=== PATIENT | male | born 1940 | race Caucasian/White ===

== ENCOUNTER 2019-08-26 10:19 | Observation (INO) | payer OTHER ==
--- OUTSIDE RECORDS SUMMARY | 2019-08-26 10:21 | XMS REPORT ---
:1940 [facility] [address] [place] [address] Care Team Providers Name Role Phone Unavailable Unavailable Unavailable Payers Payer Name Policy Type Policy Number Effective Date Expiration Date Problems This patient has no known problems. Allergies, Adverse Reactions, Alerts Allergy Name Allergy Status Severity Reaction(s) Onset Inactive Treating Comments Type Date Date Clinician No Known Drug DA Active U Allergies 05-31 00:00: 00 tamsulosin DA Active SV 3-04 00:00: 00 hydrocodone DA Active U 3- 00:00: 00 ciprofloxacin DA Active NH 10-16 00:00: 00 Medications This patient has no known medications. 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 Fluoroscopically guided needle localization of the right L4-5 intraspinal synovial cyst with aspiration and decompression. 2. Fluoroscopically guided needle localization of the bilateral L4-5 and bilateral L5-S1 facets with arthrograms and diagnostic injection of local anesthetic and steroid. FINDINGS: Grade 2 spondylolisthesis is present at L4-5. The right L4-5 facet shows a large synovial cysts extending almost to the anterior epidural space off the superior capsule. Aspiration was positive for 0.5 mL of clear serous straw-colored fluid. All joints showed marked capsular degenerative changes. Provocation was negative. Anesthetic response was positive with the patient noting complete relief of his low back pain. Preinjection VAS 5-6/10. Postinjection VAS 0/10. Steroid response pending follow-up. ESTIMATED BLOOD LOSS: Minimal ANESTHESIA: TIVA COMPLICATIONS: None DETAILS OF PROCEDURE: After obtaining stable vital signs, informed consent and IV access patient was taken to the fluoroscopy suite where the patient was placed in a prone position with All extremities padded and appropriate monitors placed. The patient was sterilely prepped prepped and draped over the lumbosacral spine. Using fluoroscopic visualization, the insertion sites were marked for a paravertebral approach to each joint. Using standard technique, a 26 -gauge needle was inserted into each joint capsule without paresthesias. At the right L4-5 facet, aspiration was positive for clear serous fluid. Isovue-300 contrast 0.2 mL was injected to produce each arthrogram. There were no signs of intravascular or intrathecal uptake. A large synovial cyst was identified off the superomedial aspect of the right L4-5 facet and the insertion site was marked for a paravertebral approach sublaminar. Using standard technique a 25-gauge needle was advanced into the cyst and aspiration was positive for 0.5 mL of clear serous straw-colored fluid. Several passes into the cyst were made. Retrograde flow of contrast was seen into the cyst needle. The needle was removed. Bupivicaine 0.75% 0.5 mL with Lidocaine 4% 0.25 ml and triamcinolone 12 mg was then injected incrementally into each joint. There were no signs of intravascular or intrathecal uptake. The patient's vital signs remained stable. All needles were removed and the patient was taken to the PACU in good condition. [facility] NAME: COLUMBA ESPINO [address] [facility] PHYS: Yovany Coronado MD [place], [place] [address] : 1940 AGE: 78 SEX: M LOC: TORRES PHONE #: [phone] EXAM DATE: 05/31/2019 STATUS: [place] [facility] FAX #: [phone] RAD #: D/C DT PAGE 1 Signed Report (CONTINUED) Patient Name: COLUMBA ESPINO Unit No: [id number] EXAMS: CPT CODE: [id number] XR FLUORO FOR SPINE INJ 62603 <Continued> at 1652 Reported and signed by: Yovany Gao M.D. CC: Yovany Gao MD Technologist: DONNA WONG RT(R) Transcribed D/ (296) [facility]: COLUMBA ESPINO [address] PHYS: Yovany Coronado MD [place] [address] : 1940 AGE: 78 SEX: M LOC: TORRES PHONE #: [phone] EXAM DATE: 05/31/2019 STATUS: REG [facility] FAX #: [phone] RAD #: D/C DT PAGE 2 Signed Report Patient Name: COLUMBA ESPINO Unit No: [id number] EXAMS: CPT CODE: [id number] XR FLUORO FOR SPINE INJ 97750 <Continued> Orig Print D/T: S: 05/31/2019 ([id number] NAME: COLUMBA ESPINO [address] PHYS: Yovany Coronado MD [place] [address] : 1940 AGE: 78 SEX: M LOC: TORRES PHONE #: [phone] EXAM DATE: 05/31/2019 STATUS: REG [facility] FAX #: [phone] RAD #: D/C DT PAGE 3 Signed Report - XR FLUORO FOR SPINE INJ 2018-11-27 19:02:00 Patient Name: COLUMBA ESPINO Unit No: [id number] EXAMS: CPT CODE: [id number] XR FLUORO FOR SPINE INJ 80351 LUMBAR FACET INJECTION DIAGNOSTIC REFERRAL PHYSICIAN: None PREOPERATIVE DIAGNOSIS: Mechanical low back pain POSTOPERATIVE DIAGNOSIS: L4-5 grade 1-2 spondylolisthesis with symptomatic degenerative bilateral L4-5 and L5-S1 facets. Spinal stenosis with large right L4-5 facet synovial cyst. PROCEDURE PERFORMED: 1. Fluoroscopically guided needle localization of the bilateral L4-5 and bilateral L5-S1 facets with arthrograms and diagnostic injection of local anesthetic and steroid. 2. Fluoroscopically guided needle localization of the right L4-5 intraspinal synovial cyst with aspiration and decompression. FINDINGS: Marked degenerative changes were seen in all joints with marked joint hypertrophy on the right at L4-5. A large synovial cyst extends superiorly off the medial capsule on the right at L4-5 extending almost to the anterior aspect of the canal. The cyst was aspirated and aspiration of the facets produced 0.7 mL of clear serous straw-colored fluid. Provocation with injection was negative. Anesthetic response was positive with the patient noting complete relief of his low back and radiating pain. Preinjection VAS 6-7/10. Postinjection VAS 0/10. Steroid response pending follow-up. ESTIMATED BLOOD LOSS: Minimal ANESTHESIA: TIVA COMPLICATIONS: None DETAILS OF PROCEDURE: After obtaining stable vital signs, informed consent and IV access patient was taken to the fluoroscopy suite where the patient was placed in a prone position with All extremities padded and appropriate monitors placed. The patient was sterilely prepped prepped and draped over the lumbosacral spine. Using fluoroscopic visualization, the insertion sites were marked for a paravertebral approach to each joint. Using standard technique, a 25 -gauge needle was inserted into each joint capsule without paresthesias. At all levels, aspiration was negative for clear serous fluid. Isovue-300 contrast 0.2 mL was injected to produce each arthrogram. There were no signs of intravascular or intrathecal uptake. Large synovial cyst extending off the superomedial aspect of the right L4-5 facet and the insertion site was marked for a paravertebral approach. Using standard technique a 25-gauge needle was advanced into the cyst were aspiration was positive for 0.5 mL of clear serous fluid. No radicular stimulation or paresthesias were elicited. Several passes through the cyst were made. Slight extravasation the epidural space was seen with further injection of contrast. Bupivicaine 0.75% 0.5 mL with Lidocaine 4% 0.25 ml and triamcinolone 10 mg was then injected incrementally into each joint with an additional 10 mg of triamcinolone injected at the right L4-5 facet. There were no signs of intravascular or intrathecal [facility] NAME: COLUMBA ESPINO [address] PHYS: Yovany Coronado MD [place], [place] [address] : 1940 AGE: 78 SEX: M LOC: TORRES PHONE #: [phone] EXAM DATE: 11/27/2018 STATUS: [facility] FAX #: [phone] RAD #: D/C DT PAGE 1 Signed Report (CONTINUED) Patient Name: COLUMBA ESPINO Unit No: [id number] EXAMS: CPT CODE: [id number] XR FLUORO FOR SPINE INJ 96291 <Continued> uptake. The patient's vital signs remained stable. All needles were removed and the patient was taken to the PACU in good condition. at 1902 Reported and signed by: Yovany Gao M.D. CC: Yovany Gao MD Technologist: GREGORY RIVERA RT(R) Transcribed D/ (1901) [facility] NAME: COLUMBA ESPINO [address] PHYS: Yovany Coronado MD [place] [address] : 1940 AGE: 78 SEX: M LOC: TORRES PHONE #: [phone] EXAM DATE: 11/27/2018 STATUS: [facility] FAX #: [phone] RAD #: D/C DT PAGE 2 Signed Report Patient Name: COLUMBA ESPINO Unit No: [id number] EXAMS: CPT CODE: [id number] XR FLUORO FOR SPINE INJ 28697 <Continued> Orig Print D/T: S: 11/27/2018 (1904) [facility] NAME: COLUMBA ESPINO [address] PHYS: Yovany Coronado MD [place], [place] [address] : 1940 AGE: 78 SEX: M LOC: TORRES PHONE #: [phone] EXAM DATE: 11/27/2018 STATUS: REG [facility] FAX #: [phone] RAD #: D/C DT PAGE 3 Signed Report - XR L-SPINE W/BEND VIEW 2018-10-31 10:55:00 Patient Name: COLUMBA ESPINO Unit No: [id number] EXAMS: CPT CODE: [id number] XR L-SPINE W/BEND VIEW 52430 LUMBAR SPINE 5 VIEWS PLUS FLEXION AND EXTENSION COMMENT: COMPARISON: No prior exams available. There is a scoliosis convex right. Vertebral body heights are maintained. Endplate degenerative change and interspace narrowing is seen from L4 to S1 with grade 1 spondylolisthesis at L4-5. No abnormal motion is seen with flexion and extension. at 105 Reported and signed by: Andre Hurt MD CC: Yovany Gao MD Technologist: LANE STEINER, RT(R) Transcribed D/ (9892) [email or web address]: COLUMBA [facility] [address] [facility] PHYS: Yovany Coronado MD : 1940 AGE: 77 SEX: M [place] [address] LOC: Y.MRI PHONE #: [phone] EXAM DATE: 10/30/2018 STATUS: DEP CLI FAX #: [phone] RAD #: D/C DT PAGE 1 Signed Report Patient Name: COLUMBA ESPINO Unit No: [id number] EXAMS: CPT CODE: [id number] XR L-SPINE W/BEND VIEW 79478 <Continued> Orig Print D/T: S: 10/31/2018 (8068) [facility] NAME: COLUMBA ESPINO [address] [facility] PHYS: Yovany Coronado MD : 1940 AGE: 77 SEX: M [place], [place] [address] LOC: Y.MRI PHONE #: [phone] EXAM DATE: 10/30/2018 STATUS: DEP CLI FAX #: [phone] RAD #: D/C DT PAGE 2 Signed Report - MRI L-SPINE W/O CONT 2018-10-31 10:10:00 Patient Name: COLUMBA ESPINO Unit No: [id number] EXAMS: CPT CODE: [id number] MRI L-SPINE W/O CONT 33939 DIAGNOSIS: 1. At L1-2 there is a mild retrolisthesis and associated disc bulging with mild left foraminal narrowing without right-sided stenosis. No canal stenosis is seen 2. At L2-3 there is slight disc bulging in the foramina with mild right foraminal narrowing and slight narrowing on the left. Mild central canal stenosis is seen with facet and ligamentum flavum hypertrophic and degenerative change. 3. At L3-4 there is 2 mm of disc bulging in the foramina with mild bilateral foraminal narrowing. A small right facet cyst is present with facet and ligamentum flavum hypertrophic and degenerative change. Moderate narrowing of the central canal is seen. 4. At L4-5 there is a postsurgical grade 1 spondylolisthesis without a focal abnormality. Marked right foraminal narrowing is seen with a right-sided facet effusion. Moderate left foraminal stenosis is present. There is a left-sided laminectomy with decompression of the canal 5. At L5-S1 there is no evidence for disc bulge or herniation, bony canal or foraminal stenosis. Bilateral facet degeneration is present greater on the left. COMMENT: COMPARISON: No prior exams available. Scans were performed in the sagittal and axial planes utilizing T1, T2 and inversion recovery images. Mild endplate degenerative change is seen with disc degeneration at L4-5. The remaining discs are desiccated. Disc configurations are as described. Spondylitic changes are as noted. The conus is in the expected location. The description these findings assumes a normal count of 5 lumbar type vertebra. at 1010 Reported and signed by: Andre Hurt MD CC: Yovany Gao MD Technologist: CITLALI LALA MRI Transcribed D/ (1010) t.[email or web address] [facility] NAME: COLUMBA ESPINO [address] [facility] PHYS: Yovany Coronado MD : 1940 AGE: 77 SEX: M [place], [place] [address] LOC: Y.MRI PHONE #: [phone] EXAM DATE: 10/30/2018 STATUS: DEP CLI FAX #: [phone] RAD #: D/C DT PAGE 1 Signed Report Patient Name: COLUMBA ESPINO Unit No: [id number] EXAMS: CPT CODE: [id number] MRI L-SPINE W/O CONT 39416 <Continued> Orig Print D/T: S: 10/31/2018 (1014) [facility] NAME: COLUMBA ESPINO [address] PHYS: Yovany Coronado MD : 1940 AGE: 77 SEX: Lamin [place], [place] [address] LOC: Y.MRI PHONE #: [phone] EXAM DATE: 10/30/2018 STATUS: DEP CLI FAX #: [phone] RAD #: D/C DT PAGE 2 Signed Report
[2019-08-26 11:38] LABS: Absolute Lymphocytes (CBC) 1.2 K/uL (0.7-4.9); Basophils % 0.4 % (0-1.3); Hematocrit 38.5 % (39.6-49.0); Lymphocytes % 20.6 % (15.3-44.8); RBC Red Blood Cell Count 4.39 M/uL (4.33-5.43)
[2019-08-26 11:47] LABS: Protime INR 1.03
[2019-08-26 12:14] LABS: ALT/SGPT 25 U/L (12-78); AST/SGOT 15 U/L (15-37); Albumin 3.7 g/dL (3.4-5.0); Alkaline Phosphatase 43 U/L (45-117); BUN Blood Urea Nitrogen 19 mg/dL (7-18); Bicarbonate 29 mmol/L (21-32); Bilirubin Total 0.4 mg/dL (0.2-1.0); Glucose Level 132 mg/dL (74-106); Magnesium 2.1 mg/dL (1.8-2.4); NT PRO-BNP 33 pg/mL (<450); Potassium 4.1 mmol/L (3.5-5.1); Protein, Total 6.7 g/dL (6.4-8.2); Sodium Level 141 mmol/L (136-145); Troponin (Emerg Dept Use Only) < 0.02 ng/mL (0.0-0.045)
--- NOTE | 2019-08-26 12:17 | RAD REPORT ---
EXAM DESCRIPTION: RAD - Chest Single View - 08/26/2019 12:00 pm CLINICAL HISTORY: CHEST PAIN Chest pain. COMPARISON: Chest Pa And Lat (2 Views) dated 05/31/2019; Abdomen 1 View (KUB) dated 08/30/2017; Abdomen 1 View (KUB) dated 08/27/2016; Abdomen 1 View (KUB) dated 01/28/2016 FINDINGS: Portable technique limits examination quality. The lungs are grossly clear. The heart is normal in size. Postsurgical changes of a CABG are noted.Ol d right posterior rib fractures. IMPRESSION: No acute intrathoracic process suspected.
--- NOTE | 2019-08-26 13:24 | ER ---
Nurse's Notes [facility] Name: Davin Rodriguez Age: 78 yrs Sex: Male : 1940 Arrival Date: 08/26/2019 Time: 10:19 Bed 2 Private MD: Manolo Degroot T Diagnosis: Near syncope Presentation: 08/26 10:47 Presenting complaint: Patient states: "About 8:30 I went to shave and when I got to get aj1 up and I was dizzy, I had no balance, my assisted me back down, and I sat for a while and then went back to bed. I have headache, a stomach ache and my left arm hurts. When I got up again I wasn't that dizzy, but the headache, the stomach ache, and the arm pain isn't going away. I have 5 bypasses". Transition of care: patient was not received from another setting of care. Onset of symptoms was 2018. Risk Assessment: Do you want to hurt yourself or someone else? Patient reports no desire to harm self or others. Initial Sepsis Screen: Does the patient meet any 2 criteria? No. Patient's initial sepsis screen is negative. Does the patient have a suspected source of infection? No. Patient's initial sepsis screen is negative. Care prior to arrival: None. 10:47 Method Of Arrival: Ambulatory aj 10:47 Acuity: SARAH 2 aj1 Triage Assessment: 11:25 Headache History: Denies prior headaches. Pain: Complains of pain in forehead Pain does ca1 not radiate. Pain currently is 2 out of 10 on a pain scale. Pain began 3 hours ago. Also complains of no other associated symptoms. Historical: - Allergies: 10:51 Ciprofloxacin; aj1 10:51 TAMSULOSIN; aj1 10:51 finasteride; aj1 - PMHx: 10:51 cardiac bypass x5; Hypertension; aj1 - Immunization history:: Flu vaccine is up to date. - Social history:: Smoking status: Patient/guardian denies using tobacco. - Ebola Screening: : Patient denies travel to an Ebola-affected area in the 21 days before illness onset. Screenin:14 Abuse screen: Denies threats or abuse. Denies injuries from another. Nutritional ca1 screening: No deficits noted. Tuberculosis screening: No symptoms or risk factors identified. Fall Risk IV access (20 points). Ambulatory Aid- Crutches/Cane/Walker (15 pts). Assessment: 11:14 General: Appears in no apparent distress. comfortable, Behavior is calm, cooperative, ca1 appropriate for age. Pain: Complains of pain in left arm Pain currently is 5 out of 10 on a pain scale. Pain began 3 hours ago. Neuro: Level of Consciousness is awake, alert, obeys commands, Oriented to person, place, time, situation, Appropriate for age. Neuro: Reports. Neuro: Reports dizziness, since this morning headache frontal area. Cardiovascular: Heart tones S1 S2 present Capillary refill < 3 seconds Patient's skin is warm and dry. Rhythm is sinus rhythm. Respiratory: Airway is patent Respiratory effort is even, unlabored, Respiratory pattern is regular, symmetrical. GI: Abdomen is round non-distended, Bowel sounds present X 4 quads. Abd is soft and non tender X 4 quads. :. : No deficits noted. No signs and/or symptoms were reported regarding the genitourinary system. EENT: No deficits noted. No signs and/or symptoms were reported regarding the EENT system. Derm: Skin is intact, is healthy with good turgor, Skin is pink, warm \\T\\ dry. Musculoskeletal: Circulation, motion, and sensation intact. Capillary refill < 3 seconds, Range of motion: intact in all extremities. 12:16 Reassessment: Patient appears in no apparent distress at this time. Patient and/or ca1 family updated on plan of care and expected duration. Pain level reassessed. Patient is alert, oriented x 3, equal unlabored respirations, skin warm/dry/pink. 13:00 Reassessment: Patient appears in no apparent distress at this time. Patient is alert, ca1 oriented x 3, equal unlabored respirations, skin warm/dry/pink. 13:10 Reassessment: Dr. Mendez at bedside. ca1 13:53 Reassessment: Patient appears in no apparent distress at this time. Patient is alert, ca1 oriented x 3, equal unlabored respirations, skin warm/dry/pink. Vital Signs: 10:51 BP 168 / 68; Pulse 63; Resp 18; Temp 97.4; Pulse Ox 96% on R/A; Weight 113.4 kg (R); aj1 Height 5 ft. 10 in. (177.80 cm) (R); Pain 5/10; 11:26 BP 176 / 74; Pulse 66; Resp 12 S; Pulse Ox 98% on R/A; ca1 12:00 BP 143 / 70; Pulse 64; Resp 12 S; Pulse Ox 96% on R/A; ca1 12:10 BP 129 / 64 Supine; Pulse 63; Resp 10; Pulse Ox 97% on R/A; mh5 12:12 BP 146 / 60 Sitting; Pulse 63; Resp 11; Pulse Ox 97% on R/A; mh5 12:14 BP 146 / 66 Standing; Pulse 68; Resp 10; Pulse Ox 96% on R/A; mh5 13:00 BP 125 / 60; Pulse 66; Resp 14 S; Pulse Ox 97% on R/A; ca1 13:53 BP 159 / 60; Pulse 70; Resp 18 S; Pulse Ox 97% on R/A; ca1 10:51 Body Mass Index 35.87 (113.40 kg, 177.80 cm) aj1 ED Course: 10:19 Patient arrived in ED. as 10:20 Manolo Degroot MD is Private Physician. as 10:49 Triage completed. aj1 10:51 Arm band placed on Patient placed in an exam room. aj1 10:53 Mark Mendez MD is Attending Physician. ps1 11:03 Patient has correct armband on for positive identification. Placed in gown. Bed in low mh5 position. Call light in reach. Side rails up X 1. Adult w/ patient. Warm blanket given. cardiac monitor on. Pulse ox on. NIBP on. 11:06 Junie Asher RN is Primary Nurse. ca1 11:14 No provider procedures requiring assistance completed. Inserted saline lock: 20 gauge ca1 in left antecubital area, using aseptic technique. Blood collected. 11:25 EKG done, by ED staff, reviewed by Mark Mendez MD. ca1 12:00 XRAY Chest (1 view) In Process Unspecified. EDMS 13:23 Regulo Rodriguez MD is Hospitalizing Provider. ps1 14:15 Patient admitted, IV remains in place. ca1 Administered Medications: No medications were administered Outcome: 13:24 Decision to Hospitalize by Provider. ps1 14:26 Admitted to Tele accompanied by tech, via stretcher, room 408, with chart, Report ca1 called to YEIMI Mullen 14:26 Condition: stable 14: Instructed on the need for admit. 14:28 Patient left the ED. ca1 Signatures: Dispatcher [employer] Divine Rg RN RN aj1 Cathryn Russo Maria 5 Mark Mendez MD MD ps1 Junie Asher RN RN ca1 Corrections: (The following items were deleted from the chart) 11 11:14 Neuro: Reports dizziness, since this morning ca1 ca1
--- NOTE | 2019-08-26 13:25 | EDPHYS ---
Physician Documentation [facility] Name: Davin Rodriguez Age: 78 yrs Sex: Male : 1940 Arrival Date: 08/26/2019 Time: 10:19 Bed 2 Private MD: Manolo Degroot T ED Physician Mark Mendez HPI: 08/26 12:17 This 78 yrs old Male presents to ER via Ambulatory with complaints of ps1 Dizziness, Headache, Arm Pain, Abdominal Pain. 12:17 Patient states that he used the restroom to shave and and had lightheadedness. Started ps1 having right arm pain. No specific chest pain. Hx of CAD in past with CABG in . No diaphoresis. Lasted for 10-15 minutes. Got up and felt better and used the bathroom. Symptoms intermittent since. [facility] in [facility]. . Historical: - Allergies: 10:51 Ciprofloxacin; aj1 10:51 TAMSULOSIN; aj1 10:51 finasteride; aj1 - PMHx: 10:51 cardiac bypass x5; Hypertension; aj1 - Immunization history:: Flu vaccine is up to date. - Social history:: Smoking status: Patient/guardian denies using tobacco. - Ebola Screening: : Patient denies travel to an Ebola-affected area in the 21 days before illness onset. ROS: 12:20 Constitutional: Negative for fever, chills, and weight loss, Eyes: Negative for injury, ps1 pain, redness, and discharge, Respiratory: Negative for shortness of breath, cough, wheezing, and pleuritic chest pain, Abdomen/GI: Negative for abdominal pain, nausea, vomiting, diarrhea, and constipation, Skin: Negative for injury, rash, and discoloration. 12:20 Cardiovascular: Positive for tightness. 12:20 Abdomen/GI: Positive for abdominal pain. 12:20 MS/extremity: Positive for of the forehead and left arm. Exam: 12:21 Constitutional: This is a well developed, well nourished patient who is awake, alert, ps1 and in no acute distress. Head/Face: Normocephalic, atraumatic. Chest/axilla: Normal chest wall appearance and motion. Nontender with no deformity. No lesions are appreciated. Cardiovascular: Regular rate and rhythm. No gallops, murmurs, or rubs. Normal PMI, no JVD. No pulse deficits. Respiratory: Lungs have equal breath sounds bilaterally, clear to auscultation and percussion. No rales, rhonchi or wheezes noted. No increased work of breathing, no retractions or nasal flaring. Abdomen/GI: Soft, non-tender, with normal bowel sounds. No distension or tympany. No guarding or rebound. No evidence of tenderness throughout. MS/ Extremity: Pulses equal, no cyanosis. Neurovascular intact. Full, normal range of motion. Neuro: Awake and alert, GCS 15, oriented to person, place, time, and situation. Cranial nerves II-XII grossly intact. Sensory grossly intact. Vital Signs: 10:51 BP 168 / 68; Pulse 63; Resp 18; Temp 97.4; Pulse Ox 96% on R/A; Weight 113.4 kg (R); aj1 Height 5 ft. 10 in. (177.80 cm) (R); Pain 5/10; 11:26 BP 176 / 74; Pulse 66; Resp 12 S; Pulse Ox 98% on R/A; ca1 12:00 BP 143 / 70; Pulse 64; Resp 12 S; Pulse Ox 96% on R/A; ca1 12:10 BP 129 / 64 Supine; Pulse 63; Resp 10; Pulse Ox 97% on R/A; mh5 12:12 BP 146 / 60 Sitting; Pulse 63; Resp 11; Pulse Ox 97% on R/A; mh5 12:14 BP 146 / 66 Standing; Pulse 68; Resp 10; Pulse Ox 96% on R/A; mh5 13:00 BP 125 / 60; Pulse 66; Resp 14 S; Pulse Ox 97% on R/A; ca1 13:53 BP 159 / 60; Pulse 70; Resp 18 S; Pulse Ox 97% on R/A; ca1 10:51 Body Mass Index 35.87 (113.40 kg, 177.80 cm) aj1 MDM: 11:25 Patient medically screened. ps1 08/26 11:25 Order name: CBC with Diff; Complete Time: 12:06 ps1 08/26 11:25 Order name: Magnesium; Complete Time: 12:22 ps1 08/26 11:25 Order name: NT PRO-BNP; Complete Time: 12: ps1 08/26 11:25 Order name: PT-INR; Complete Time: 12:06 ps1 08/26 11:25 Order name: Troponin (emerg Dept Use Only); Complete Time: 12:22 ps1 08/26 11:25 Order name: CMP; Complete Time: 12:22 ps1 08/26 11:25 Order name: XRAY Chest (1 view); Complete Time: 12:22 ps1 08/26 11:25 Order name: EKG; Complete Time: 11:26 ps1 08/26 13:33 Order name: CONS Pharmacy Consult [facility] 08/26 13:33 Order name: EKG Electrocardiogram EDMS 08/26 13:33 Order name: EKG Electrocardiogram EDMS 08/26 13:33 Order name: CBC with Automated Diff EDMS 08/26 13:33 Order name: Comprehensive Metabolic Panel EDMS 08/26 13:44 Order name: Diet Regular; Complete Time: 13:45 mh5 08/26 11:25 Order name: Cardiac monitoring; Complete Time: 11:29 ps1 08/26 11:25 Order name: EKG - Nurse/Tech; Complete Time: 11:29 [facility] 08/26 11:25 Order name: IV Saline Lock; Complete Time: 11:29 ps1 08/26 11:25 Order name: Labs collected and sent; Complete Time: 11:29 ps1 08/26 11:25 Order name: O2 Per Protocol; Complete Time: 11:29 ps1 08/26 11:25 Order name: O2 Sat Monitoring; Complete Time: 11:29 ps1 08/26 11:25 Order name: Orthostatic Blood Pressure; Complete Time: 12:22 ps1 Administered Medications: No medications were administered Disposition: 08/26/19 13:24 Hospitalization ordered by Regulo Rodriguez for Observation. Preliminary diagnosis is Near syncope. - Bed requested for Telemetry/MedSurg (observation). - Status is Observation. ca1 - Condition is Stable. - Problem is new. - Symptoms are unchanged. UTI on Admission? No Signatures: Dispatcher [employer] EDMS Divine Rodgers RN RN aj1 Mark Mendez MD MD ps1 Rani York Cheryl, RN RN ca1 Corrections: (The following items were deleted from the chart) 12:20 12:17 Patient states that he used the restroom and stood up and had lightheadedness. ps1 Started having right arm pain. No specific chest pain. Hx of CAD in past with CABG in . No diaphoresis. Lasted for 10-15 minutes. Got up and felt better and used the bathroom. Symptoms intermittent since. [facility] in [facility]. . ps1 13:50 13:24 Hospitalization Ordered by Regulo Rodriguez MD for Observation. Preliminary eb diagnosis is Near syncope. Bed requested for Telemetry/MedSurg (observation). Status is Observation. Condition is Stable. Problem is new. Symptoms are unchanged. UTI on Admission? No. ps1 14:28 13:50 08/26/2019 13:24 Hospitalization Ordered by Regulo Rodriguez MD for Observation. ca1 Preliminary diagnosis is Near syncope. Bed requested for Telemetry/MedSurg (observation). Status is Observation. Condition is Stable. Problem is new. Symptoms are unchanged. UTI on Admission? No. eb
[2019-08-26 14:54] LABS: Urine Appearance CLEAR; Urine Bilirubin NEGATIVE (NEG); Urine Blood NEGATIVE (NEG); Urine Color YELLOW; Urine Glucose NEGATIVE (NEG); Urine Protein NEGATIVE (NEG); Urine Urobilinogen 0.2 mg/dL (0.2-1.0); Urine pH 7.5 (5.0-7.0)
[2019-08-26 15:00] VITALS: BMI 34.8
[2019-08-26 15:05] LABS: Urine Bacteria <20 /HPF (NONE SEEN); Urine Culture Reflex Order REFLEXED; Urine RBC <5 /HPF (NONE SEEN)
--- NOTE | 2019-08-26 16:33 | P.HP ---
Certification for Inpatient Patient admitted to: Observation With expected LOS: <2 Midnights Practitioner: I am a practitioner with admitting privileges, knowledge of patient current condition, hospital course, and medical plan of care. Services: Services provided to patient in accordance with Admission requirements found in Title 42 Section 412.3 of the Code of Federal Regulations Patient History Date of Service: 08/26/19 Reason for admission: Loss of balance left-sided discomfort History of Present Illness: Patient is 78 years of age with significant history of for coronary artery disease admitted with sudden onset of loss of balance when he got up and started walking to the bathroom in and association with the left arm ache and abdominal discomfort. Symptoms lasted for quite some time and then resolve spontaneously. He does have a crm manager whom he follows up fairly regularly denies any shortness of breath or any pulmonary complaints no chest pain Allergies ciprofloxacin Allergy (Verified 08/26/19 15:44) Itching tamsulosin Allergy (Verified 08/26/19 15:44) Itching apap codein Allergy (Uncoded 08/26/19 15:44) Itching/Hives/Rash Home Medications: Amlodipine [Norvasc*] 1 tab PO DAILY 08/26/19 Aspirin [Ecotrin 81 MG] 1 tab PO DAILY 08/26/19 Cholecalciferol (Vitamin D3) [Vitamin D3] 1 tab PO DAILY 08/26/19 Doxazosin [Cardura*] 1 tab PO DAILY 08/26/19 Ezetimibe/Simvastatin [Ezetimibe-Simvastatin 10-40 mg] 1 each PO DAILY 6PM 08/26 Fenofibrate [Tricor*] 1 tab PO DAILY 08/26/19 Gemfibrozil [Lopid*] 1 tab PO BID 08/26/19 Losartan/Hydrochlorothiazide [Losartan-Hctz 100-25 mg Tab] 1 tab PO DAILY Magnesium Oxide [Mag 0X*] 1 tab PO BID 08/26/19 Melatonin 1 tab PO DAILY 08/26/19 Metoprolol Succinate [Toprol Xl*] 1 tab PO DAILY 08/26/19 Multivit-Min/FA/Lycopen/Lutein [Centrum Silver Tablet] 1 each PO DAILY 08/26/19 [place]-3 Fatty Acids [[place]-3] 1 tab PO BID 08/26/19 Pantoprazole [Protonix Tab*] 1 tab PO DAILY 08/26/19 Ubidecarenone [Co Q-10] 1 tab PO DAILY 08/26/19 - Past Medical/Surgical History Has patient received pneumonia vaccine in the past: Yes Diabetic: No -: Prostate Problem -: Hypertension -: Hyperlipidemia -: CAD -: Quintiple Bypass 1992 -: Hernia Surgery X 4 -: Prostate Surgery 2x -: Fatty Tumor removal on left shoulder - Family History Father -: Lung disease, Cancer Mother -: Heart disease - Social History Smoking Status: Never smoker Alcohol use: No CD- Drugs: No Caffeine use: Yes Place of Residence: Home Review of Systems 10-point ROS is otherwise unremarkable Physical Examination - Vital Signs Temperature: 98.4 F Blood Pressure: 163/70 Pulse: 70 Respirations: 18 Pulse Ox (%): 97 - Physical Exam General: Alert, In no apparent distress, Oriented x3 HEENT: Atraumatic, Normocephalic Neck: Supple Respiratory: Clear to auscultation bilaterally, Normal air movement Cardiovascular: No edema, Normal pulses, Regular rate/rhythm Gastrointestinal: Normal bowel sounds, Soft and benign Musculoskeletal: No clubbing, No swelling Integumentary: No rashes, No breakdown, No significant lesion Neurological: Normal gait, Normal speech, Normal strength at 5/5 x4 extr, Cranial nerves 3-12 intact - Studies Laboratory Data (last 24 hrs) 08/26/19 11:24: PT 12.1, INR 1.03 08/26/19 11:24: WBC 6.1, Hgb 13.2 L, Hct 38.5 L, Plt Count 170 08/26/19 11:24: Sodium 141, Potassium 4.1, BUN 19 H, Creatinine 1.16, Glucose 132 H, Magnesium 2.1, Total Bilirubin 0.4, AST 15, ALT 25, Alkaline Phosphatase 43 L Assessment and Plan - Problems (Diagnosis) (1) Dizziness Current Visit: Yes Status: Acute Plan: Patient is 78 years of age admitted with sudden onset of loss of balance aching in the left arm abdominal discomfort symptoms have now resolved laboratory data is unremarkable chest x-rays clear is quite possible that he had a TIA ordered a carotid ultrasound Discharge Plan: Home Plan to discharge in: 24 Hours - Advance Directives Does patient have a Living Will: Yes Does patient have a Durable POA for Healthcare: Yes
[2019-08-26] MEDS: AMLODIPINE 5 MG TAB PO SCH (17:16)
[2019-08-26] MEDS: DOXAZOSIN 4 MG TAB PO SCH (17:17)
[2019-08-26] MEDS: METOPROLOL XL 50 MG TAB PO SCH (17:18)
[2019-08-26] MEDS ORDERED: SIMVASTATIN PO SCH (18:00)
[2019-08-26] MEDS ORDERED: EZETIMIBE PO SCH (18:00)
[2019-08-26] MEDS: GEMFIBROZIL 600 MG TAB PO SCH (20:55)
--- NOTE | 2019-08-26 23:05 | EKG ---
Test Date: 2019-08-26 Test Time: 11:22:53 Marine Propulsion Technician: DIVINE MEASUREMENT RESULTS: Intervals: Rate: 66 OH: 198 QRSD: 122 QT: 402 QTc: 421 [place]: P: 45 OH: 198 QRS: 80 T: 68 INTERPRETIVE STATEMENTS: Normal sinus rhythm Nonspecific intraventricular conduction delay Nonspecific T wave abnormality Abnormal ECG Compared to ECG 05/31/2019 10:42:38 Sinus arrhythmia no longer present T-wave abnormality still present Electronically Signed On 08-26-19 23:05:00 INCOME AUDITOR by Yakov Mcclellan
[2019-08-27 04:30] VITALS: O2SAT 96
[2019-08-27 05:57] LABS: Absolute Lymphocytes (CBC) 1.6 K/uL (0.7-4.9); Basophils % 0.6 % (0-1.3); Hematocrit 37.3 % (39.6-49.0); Lymphocytes % 23.8 % (15.3-44.8); MPV 9.7 fL (7.6-11.3); RBC Red Blood Cell Count 4.18 M/uL (4.33-5.43)
[2019-08-27 06:16] LABS: Albumin 3.2 g/dL (3.4-5.0); Bilirubin Total 0.4 mg/dL (0.2-1.0); Potassium 3.9 mmol/L (3.5-5.1); Protein, Total 5.9 g/dL (6.4-8.2)
[2019-08-27] MEDS ORDERED: DOXAZOSIN 2 MG TAB ONE (07:25)
[2019-08-27 08:16] VITALS: TEMP 97.4
[2019-08-27] MEDS ORDERED: hydroCHLOROthiazide 25 MG TAB PO SCH (09:00)
[2019-08-27] MEDS ORDERED: ASPIRIN EC 81 MG TAB PO SCH (09:00)
[2019-08-27] MEDS ORDERED: DOCOSAHEXANOIC AC/EPA 1000 MG PO SCH (09:00)
[2019-08-27] MEDS: AMLODIPINE 5 MG TAB PO SCH (09:00)
[2019-08-27] MEDS: METOPROLOL XL 50 MG TAB PO SCH (09:00)
[2019-08-27] MEDS ORDERED: FENOFIBRATE 160 MG TAB PO SCH (09:00)
[2019-08-27] MEDS ORDERED: HOME MED 1 EA UNK (Losartan/Hydrochlorothiazide [Losartan-Hctz 100-25 Mg Tab] 1 TAB) PO SCH (09:00)
[2019-08-27] MEDS: DOXAZOSIN 4 MG TAB PO SCH (09:00)
[2019-08-27] MEDS ORDERED: LOSARTAN POTASSIUM 50 MG TABLET PO SCH (09:00)
[2019-08-27] MEDS: GEMFIBROZIL 600 MG TAB PO SCH (09:00)
--- NOTE | 2019-08-27 10:03 | EKG ---
Test Date: 2019-08-27 Test Time: 07:20:48 Corporate Responsibility Officer: HENRRY MEASUREMENT RESULTS: Intervals: Rate: 65 TX: 186 QRSD: 122 QT: 420 QTc: 436 [place]: P: 52 TX: 186 QRS: 81 T: 49 INTERPRETIVE STATEMENTS: Normal sinus rhythm with sinus arrhythmia Nonspecific intraventricular conduction delay Nonspecific T wave abnormality Abnormal ECG Compared to ECG 08/26/2019 11:22:53 No significant changes Electronically Signed On 08-27-19 10:02:59 SUPERVISOR GEAR REPAIR by Yakov Mcclellan
--- NOTE | 2019-08-27 12:22 | RAD REPORT ---
EXAM DESCRIPTION: MRI - MRA Head Wo Cont - 08/27/2019 12:02 pm CLINICAL HISTORY: Dizziness, weakness, stroke-like symptoms COMPARISON: MRI brain same date TECHNIQUE: Axial and coronal 3D [id number] image acquisition was performed. 3D rotational images were generated with source and reconstruction images reviewed. Horizontal and vertical axis rotation al views generated using MIP protocol. FINDINGS: No aneurysm or vascular malformation identified. A small vessel extends inferiorly from th e distal margin of the right anterior cerebral artery A1 segment. Patient has persistent origin of the right posterior cerebral artery as a normal variant. No significant atherosclerotic changes are present. There is mild narrowing of the distal most portio n of the right internal cerebral artery. No occlusion or significant vasculitis finding. Vertebrobasilar tortuosity noted. Right vertebral artery is dominant. No focal abnormality seen. IMPRESSION: No occlusion or significant stenosis identifiable. No acute finding identifiable.
--- NOTE | 2019-08-27 12:27 | RAD REPORT ---
EXAM DESCRIPTION: MRI - Brain W/Wo Cont - 08/27/2019 12:02 pm CLINICAL HISTORY: Weakness, dizziness, stroke-like symptoms COMPARISON: None. TECHNIQUE: Sagittal and axial T1-weighted images were obtained. Axial PD/heavily T2-weighted and T2- FLAIR images were obtained along with axial DWI/ADC mapping sequences. Coronal heavily T2 weighted s equence obtained. Axial and coronal post-contrast T1-weighted images were also obtained. A 20 ml Mul tihance contrast following utilized. FINDINGS: No intracranial hemorrhage, mass or acute infarction. There is no edema or shift of midli ne structures. No extra-axial fluid collections. Batista-matter/white matter junction is preserved. Sig nal voids are seen as a normal finding in the major intracranial vessels. Patient has no significant atrophy. Mild white matter hyperintensities are present consistent with a mild chronic ischemic change. Brainstem is spared. No sella or supra sella abnormality. Postcontrast imaging shows no abnormal brain or dural enhancement. No globe or orbital content abnormality. Mastoid air cells and paranasal sinuses are clear. IMPRESSION: Minimal chronic ischemic change with no acute infarction. No acute intracranial finding.
[2019-08-27 12:31] VITALS: BP 145/64
--- NOTE | 2019-08-27 12:36 | RAD REPORT ---
EXAM DESCRIPTION: MRI - MRA Neck W/Wo Cont - 08/27/2019 12:02 pm CLINICAL HISTORY: Dizziness, weakness, stroke-like symptoms TECHNIQUE: MR angiography of the cervical vasculature performed. Coronal imaging plane acquisition u tilized. A 20 MultiHance contrast volume was utilized. Coronal reformatted images were generated and reviewed. Vertical axis 3D rotational projections obtained using maximum intensity projection protoco l. FINDINGS: No significant abnormality suspected at the great vessel origins. Motion limits the assess ment. Right vertebral artery is dominant. Vertebral artery origins are also limited due to motion. No disse ction, stenosis or significant luminal narrowing identifiable. No vascular malformation. IMPRESSION: MR angio neck examination shows no significant or suspicious finding.
--- NOTE | 2019-08-27 17:37 | P.SSS ---
Patient History Date of Service: 08/27/19 Reason for admission: Loss of balance left-sided discomfort History of Present Illness: See HPI Allergies ciprofloxacin Allergy (Verified 08/26/19 15:44) Itching tamsulosin Allergy (Verified 08/26/19 15:44) Itching apap codein Allergy (Uncoded 08/26/19 15:44) Itching/Hives/Rash Home Medications: Amlodipine [Norvasc*] 1 tab PO DAILY 08/26/19 Aspirin [Ecotrin 81 MG] 1 tab PO DAILY 08/26/19 Cholecalciferol (Vitamin D3) [Vitamin D3] 1 tab PO DAILY 08/26/19 Doxazosin [Cardura*] 1 tab PO DAILY 08/26/19 Ezetimibe/Simvastatin [Ezetimibe-Simvastatin 10-40 mg] 1 each PO DAILY 6PM 08/26 Fenofibrate [Tricor*] 1 tab PO DAILY 08/26/19 Finasteride [Proscar*] 1 tab PO DAILY 08/26/19 Gemfibrozil [Lopid*] 1 tab PO BID 08/26/19 Losartan/Hydrochlorothiazide [Losartan-Hctz 100-25 mg Tab] 1 tab PO DAILY Magnesium Oxide [Mag 0X*] 1 tab PO BID 08/26/19 Melatonin 1 tab PO DAILY 08/26/19 Metoprolol Succinate [Toprol Xl*] 1 tab PO DAILY 08/26/19 Multivit-Min/FA/Lycopen/Lutein [Centrum Silver Tablet] 1 each PO DAILY 08/26/19 [place]-3 Fatty Acids [[place]-3] 1 tab PO BID 08/26/19 Pantoprazole [Protonix Tab*] 1 tab PO DAILY 08/26/19 Ubidecarenone [Co Q-10] 1 tab PO DAILY 08/26/19 - Past Medical/Surgical History Has patient received pneumonia vaccine in the past: Yes Diabetic: No -: Prostate Problem -: Hypertension -: Hyperlipidemia -: CAD -: Quintiple Bypass 1993 -: Hernia Surgery X 4 -: Prostate Surgery 2x -: Fatty Tumor removal on left shoulder - Family History Father -: Lung disease, Cancer Mother -: Heart disease - Social History Smoking Status: Never smoker Alcohol use: No CD- Drugs: No Caffeine use: Yes Place of Residence: Home Review of Systems 10-point ROS is otherwise unremarkable Physical Examination - Vital Signs Temperature: 97.4 F Blood Pressure: 145/64 Pulse: 70 Respirations: 16 Pulse Ox (%): 93 - Physical Exam General: Alert, In no apparent distress HEENT: Atraumatic, PERRLA, Mucous membr. moist/pink, EOMI, Sclerae nonicteric Neck: Supple, 2+ carotid pulse no bruit, No LAD, Without JVD or thyroid abnormality Respiratory: Clear to auscultation bilaterally, Normal air movement Cardiovascular: Regular rate/rhythm, Normal S1 S2 Gastrointestinal: Normal bowel sounds, No tenderness Musculoskeletal: No tenderness Integumentary: No rashes Neurological: Normal gait, Normal speech, Normal strength at 5/5 x4 extr, Normal tone, Normal affect Lymphatics: No axilla or inguinal lymphadenopathy - Diagnosis (Problem(s)) (1) Left arm numbness Status: Acute Treatment Summary: Overall during the hospital stay patient remained stable Patient presented to the hospital with left arm numbness along with headache. Patient was admitted to the hospital for further workup and observation. Patient did have resolution of his symptoms after 24 hr of hospitalization. Patient was initially started on IV fluids, aspirin, Lipitor for possible TIA. Patient also had a brain MRI to rule out stroke which was negative. Patient also had carotid Dopplers ordered here however patient refused to get the carotid Dopplers done as he was going to see his wood room hand in 2 days to repeat his carotid Dopplers along with echocardiogram. A detailed discussion was done with the patient's wood room hand who recommended that we can do the carotid Doppler in his office. A detailed discussion was done with patient regarding the need to continue aspirin and Lipitor upon discharge home. Patient demonstrate understanding and thus was discharged home under stable condition. - Disposition Disposition: ROUTINE DISCHARGE Condition: GOOD Diet: Regular Activity: Ad shey
[2019-08-27] MEDS ORDERED: EZETIMIBE 10 MG TAB PO SCH (18:00)
[2019-08-27] MEDS ORDERED: ATORVASTATIN 20 MG TAB PO SCH (18:00)
[2019-08-27] MEDS ORDERED: MELATONIN 5 MG TABLET PO SCH (21:00)
== END 2019-08-27 13:26 | disposition home or self-care (01) ==
LOC: SUPCPDRO 10:19 → ER 10:19 → ERHOLD 13:29 → 4TH 13:57
PROVIDERS: ADMIT Internal Medicine Sleep Medicine; ATTEND Family Medicine
DX: R20.0 Anesthesia of skin (principal); R51 Headache; I10 Essential (primary) hypertension; E78.5 Hyperlipidemia, unspecified; I25.10 Atherosclerotic heart disease of native coronary artery without angina pectoris; R42 Dizziness and giddiness
CPT/HCPCS: 93005 ×2; 87088; 85025 ×2; 81001; 36415; 83735; 85610; 84484; 80053 ×2; 83880; 71045; 70553; 70544; 70549; 94760 ×2; 99285; A9577; G0378 ×3; 87086

== ENCOUNTER 2023-02-11 14:25 | Emergency (ER) | payer OTHER ==
--- OUTSIDE RECORDS SUMMARY | 2023-02-11 14:55 | XMS REPORT | Continuity of Care Document ---
:1940 Author Organization [facility] t Address [address] [place] [address] [place] [id number] Care Team Providers Name Role Phone Manolo Degroot MD Primary Care Physician Jose Price MD Attending Clinician Karine JALLOH, Michelle Heart Attending Clinician Unavailable Donna Jolly MD Attending Clinician Afsaneh MEDICAL SERVICES COORDINATOR, Ksenia Tate Attending Clinician JUDIE GARCIA Attending Clinician Unavailable HIRA BHAGAT Attending Clinician Unavailable JAZ GUTIERREZ Attending Clinician Unavailable MD JAZ GUTIERREZ Attending Clinician Unavailable KIMMY GUERRERO Attending Clinician Unavailable MD JOSE APOOR Attending Clinician Unavailable ALVIN SHEFFIELD Attending Clinician Unavailable Jhonny Arthur DO Attending Clinician RHONDA ALBARADO Attending Clinician Unavailable Doctor Unassigned, [place] Attending Clinician Unavailable 2, [facility] Attending Clinician Unavailable Rhonda Albarado MD Attending Clinician Hafsa Navarrete MD Attending Clinician Manolo Degroot Attending Clinician Unavailable MD JAZ GUTIERREZ Admitting Clinician Unavailable KIMMY GUERRERO Admitting Clinician Unavailable MD JOSE APOOR Admitting Clinician Unavailable WILLIAM ORDAZ Admitting Clinician Unavailable Payers Payer Name Policy Type Policy Number Effective Date Expiration Date S ource Problems Condition Condition Condition Status Onset Resolution Last Treating Co mments Source Name Details Category Date Date Treatment Clinician Date Atrial Atrial Disease Active Methodi fibrillati fibrillati 8 st on on 00:00: Hospita 00 l Cardioembo Cardioembo Disease Active M ethodi lic stroke lic stroke 7 st 00:00: Hospita 00 l TIA TIA Disease Active Methodi (transient (transient 1 st ischemic ischemic 00:00: Hospit a attack) attack) 00 l Preop Preop Disease Active Methodi cardiovasc cardiovasc 2-15 st ular exam ular exam 00:00: Hosp fabiana 00 l Essential Essential Disease Active Met hodi hypertensi hypertensi 02-15 st on on 00:00: Hospita 00 l Hyperlipid Hyperlipid Disease Active M ethodi emia emia 02-15 st 00:00: Hospita 00 l 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 00:00: Hospita involving involving 00 [place] coronary coronary artery of artery of [place] heart heart Follow up Follow up Disease Active Met hodi 02-15 st 00:00: Hospita 00 l Actinic Actinic Disease Active [facility] keratosis keratosis 4-13 Alondra ege 00:00: of 00 Medicin e HAWA HAWA Diagnosis Active 2015-12-03 Mem oria Active 11-25 19:23:00 l 11/26/2015 00:00: Ko olivas 00 [facility] 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 00 Medi maverick of left of left e hand hand Onychomyco Onychomyco Disease Active [facility] sis sis - S[facility] 00:00: of 00 Medicin e OBSTRUCTIV Diagnosis Active 2015-12-03 Memoria E SLEEP OBSTRUCTIV 19:23:00 l APNEA E SLEEP [place] (ADULT) APNEA (PEDIATR (ADULT) (PEDIATR Active [facility] Allergies, Adverse Reactions, Alerts Allergy Allergy Status Severity Reaction(s) Onset Inactive Treating Comm ents Source Name Type Date Date Clinician Acetamin Propensi Active Hives Method i ophen-Co ty to 05-07 st deine adverse 00:00: Hospita reaction 00 l s to drug Cephalex Propensi Active Rash Method i in ty to 03-26 st adverse 00:00: Hospita reaction 00 l s to drug Codeine Propensi Active Rash Methodi ty to 03-26 st adverse 00:00: Hospita reaction 00 l s to drug No Known DA Active [facility]05 [place] Allergie 00:00: Orthope s 00 dic Hospita l tamsulos DA Active [facility] in 11-27 [place] 00:00: Orthope 00 dic Hospita l hydrocod DA Active [facility] one 11-24 [place] 00:00: Orthope 00 dic Hospita l Ciproflo Propensi Active [facility] xacin ty to 16 [facility] adverse 00:00: of reaction 00 Medicin s to e drug ciproflo DA Active [place] [facility] xacin 10-16 [place] 00:00: Orthope 00 dic Hospita l NO KNOWN Drug Active Univers ALLERGIE Class ity of S [facility] Family History Family Member Diagnosis Comments Start Date Stop Date Source Natural father Lung cancer [facility] Natural mother Heart failure [facility] [place] Social History Social Habit Start Date Stop Date Quantity Comments Source Exposure to Not sure University of SARS-CoV-2 (event) [facility] History of tobacco Current smoker [facility] use Hospital Gender identity [facility] Sexual orientation [facility] Cigarettes smoked 2022-08-05 2022-08-05 [facility] current (pack per 00:00:00 00:00:00 Hospita l day) - Reported Tobacco use and 2022-08-05 2022-08-05 Smokeless [facility] exposure 00:00:00 00:00:00 tobacco non-user Hospital Alcohol intake 2022-08-05 2022-08-05 Current [facility] 00:00:00 00:00:00 non-drinker of Hospital alcohol (finding) History of Social 2022-08-05 2022-08-[address] function 00:00:00 00:00:00 Hospital Social History 2015-12-04 2015-12-04 [facility] 05:59:00 05:59:00 Sex Ass[birth year] [facility] 00:00:00 00:00:00 Hospital Smoking Status Start Date Stop Date Source Unknown if ever smoked [facility] Ex-smoker 2022-08-05 00:00:00 2022-08-05 00:00:00 [facility] Never smoker [facility] o f Medicine Medications Ordered Filled Start Stop Current Ordering Indication Dosage Frequency Signature Comments Components Source Medication Medication Date Date Medication? Clinician (SIG) Name Name pantoprazol 2021-09 Yes 40mg Take 40 mg Methodi e 1-[address] (PROTONIX) 08:21: Takes on Hos isaias 40 MG EC 15 Tuesday l tablet and Tuesday coenzyme 2021-09 Yes 200mg QD Take 200 Meth margarita Q10 200 mg 1-[address] capsule 08:21: mouth Hospita 15 daily. l magnesium 2021-09 Yes 400mg Q.5D Take 400 Met hodi oxide 1-[address] (MAG-OX) 08:21: mouth 2 Hospit a 400 mg 15 (two) l tablet times a day. melatonin 5 2021-09 Yes 1{capsu QD Take 5 mg Methodi mg capsule 1-10 le} by mouth st 08:21: every Hospita 15 evening. l multivit-mi 2021-09 Yes 1{tbl} QD Take 1 Me thodi n-FA-lycope 1-[address] n-lutein 08:21: mouth Hospita (Centrum 15 every l Silver Men) morning. 300-600-300 mcg tablet cholecalcif 2021-09 Yes 2000U QD Take 2,000 Methodi sincere, 1-10 Units by vitamin D3, 08:21: mouth Hospi ta 50 mcg 15 daily. l (2,000 unit) capsule capsule ketoconazol 2021-09 Yes [id number] Apply 1 Methodi e (NIZORAL) 1-[id number] 2 % shampoo 08:21: 3W n Hospit a 15 topically l 3 (three) times a week. Apply to damp skin, lather, leave on 5 minutes, and rinse ascorbic 2021-09 Yes 1000mg Q.5D Take 1,000 M ethodi acid, 1-[address] vitamin C, 08:21: mouth 2 Hosp fabiana (VITAMIN C) 15 (two) l 1000 MG times a tablet day. zinc 50 mg 2021-09 Yes 50mg Take 50 mg M ethodi tablet 1-[address] 08:21: Hospita 15 l TURMERIC 2021-09 Yes Take by Method i ORAL 1-[address] 08:21: Hospita 15 l aspirin 2021-09 Yes 81mg QD Take 81 mg Meth margarita (ECOTRIN) 1-[address] 81 MG 08:21: daily. Hospita enteric 15 l coated tablet losartan-hy 2021-09 Yes 1{tbl} QD Take 1 Me thodi drochloroth 1-[address] iazide 00:00: mouth Hospita (HYZAAR) 00 daily. l 100-25 mg per tablet metoprolol 2021-09 Yes [id number] 50mg QD Take 1 M ethodi succinate 1-10 tablet (50 st XL 00:00: mg total) Hospita (TOPROL-XL) 00 by mouth l 50 mg 24 hr daily. tablet amLODIPine 2021-09 Yes 5mg QD Take 1 Metho di (NORVASC) 5 1-10 tablet (5 st mg tablet 00:00: mg total) Hos isaias 00 by mouth l daily. doxazosin 2021-09 Yes 4mg QD Take 1 Method i (CARDURA) 4 1-10 tablet (4 st MG tablet 00:00: mg total) Hos isaias 00 by mouth l nightly. ezetimibe-s 2021-09 Yes 1{tbl} QD Take 1 Me thodi imvastatin 1-[address] (VYTORIN) 00:00: mouth Hospita 10-40 mg 00 nightly. l per tablet gemfibroziL 2021-09 Yes 600mg Q.5D Take 1 Met hodi (LOPID) 600 1-[address] MG tablet 00:00: (600 mg Hospi ta 00 total) by l mouth 2 (two) times a day. losartan-hy 2021- No 1{tbl} QD Take 1 M ethodi drochloroth 8-11 11-[address] iazide 00:00: 00:00 mouth Hospita (HYZAAR) 00 :00 daily. l 100-25 mg per tablet triamcinolo Yes APPLY TO Me thodi ne 7-[address] (KENALOG) 00:00: AFFECTED Hosp fabiana 0.1 % cream 00 AREA OF l BODY TWICE DAILY FOR 7 TO 14 DAYS NEEDED FOR FLARE AVOID losartan No 100mg QD Take 1 Metho di (Cozaar) 02-11 05-[address] 100 MG 00:00: 04:59 (100 mg Hospita tablet 00 :00 total) by l mouth daily. losartan 2021- No 100mg QD Take 1 Metho di (Cozaar) 02-11 07-[address] 100 MG 00:00: 00:00 (100 mg Hospita tablet 00 :00 total) by l mouth daily. icosapent Yes 2g Q.5D Take 2 Method i ethyL 5-[address] (Vascepa) 1 00:00: (2 g Hospit a gram 00 total) by l capsule mouth 2 (two) times a day with meals. doxazosin 2021- No TAKE 1 Metho di (CARDURA) 4 4-13 11-[address] MG tablet 00:00: 00:00 NIGHTLY Hosp fabiana 00 :00 l gemfibroziL 2021- No 600mg Q.5D Take 1 Me beltranodi (LOPID) 600 3-14 11-[address] MG tablet 00:00: 00:00 (600 mg Hosp fabiana 00 :00 total) by l mouth 2 (two) times a day. omega-3 2020-09 Yes 1g Q.5D Take 1 Methodi acid ethyl 1-09 capsule (1 st esters 00:00: g total) Hospita (LOVAZA) 1 00 by mouth 2 l gram (two) capsule times a day. ezetimibe-s 2020-09- No 1{tbl} QD Take 1 M ethodi imvastatin 10-04 11-[address] (VYTORIN) 00:00: 00:00 mouth Hospit a 10-40 mg 00 :00 nightly. l per tablet metoprolol 2020-09- No [id number] 50mg QD Take 1 Methodi succinate 10-04 11-10 tablet (50 st XL 00:00: 00:00 mg total) Hospita (TOPROL-XL) 00 :00 by mouth l 50 mg 24 hr daily. tablet amLODIPine 2020-09- No 5mg QD Take 1 Meth margarita (NORVASC) 5 10-04 11-10 tablet (5 st mg tablet 00:00: 00:00 mg total) Ho spita 00 :00 by mouth l daily. losartan-hy 2020-09- No [id number] 1{tbl} QD Take 1 Methodi drochloroth 10-[address] iazide 00:00: 00:00 mouth Hospita (HYZAAR) 00 :00 daily. l 100-25 mg per tablet Fenofibrate 2019- No 160mg Take 160 Univers 160 mg 05-28 mg by ity of tablet 14:54: 00:00 mouth. [place] 24 :00 [facility] Fenofibrate 0 2020- No 160mg Take 160 Univers 160 mg 05-28 mg by ity of tablet 14:54: 00:00 mouth. [place] 24 :00 [facility] montelukast 2019-0 2020- No 10mg Take 10 mg Univers 10 mg 05-28 by mouth. ity of tablet 14:54: 00:00 [place] 02 :00 [facility] montelukast 0 2020- No 10mg Take 10 mg Univers 10 mg 05-28 by mouth. ity of tablet 14:54: 00:00 [place] 02 :00 [facility] aspirin 81 2019-0 2020- No 81mg Take 81 mg Univers mg EC 05-28 by mouth. ity of tablet 14:53: 00:00 [place] 53 :00 [facility] aspirin 81 2019-0 2020- No 81mg Take 81 mg Univers mg EC 05-28 by mouth. ity of tablet 14:53: 00:00 [place] 53 :00 [facility] Coenzyme 2020-0 Yes 200mg Take 200 Univ ers Q10 200 mg 9-02 mg by ity of Cap 14:53: mouth. [address] Coenzyme 2020-0 Yes 200mg Take 200 Univ ers Q10 200 mg 9-02 mg by ity of Cap 14:53: mouth. [address] Coenzyme 2020-0 Yes 200mg Take 200 Univ ers Q10 200 mg 9-02 mg by ity of Cap 14:53: mouth. [address] Coenzyme 2020-0 Yes 200mg Take 200 Univ ers Q10 200 mg 9-02 mg by ity of Cap 14:53: mouth. [place] [address] [facility] Coenzyme 2020-0 Yes 200mg Take 200 Univ ers Q10 200 mg 9-02 mg by ity of Cap 14:53: mouth. [place] [address] [facility] metoprolol 2020-0 Yes Univers succinate 8-31 ity of XL 50 mg 24 00:00: [place] hr tablet Medical Branch doxazosin 4 2020-0 Yes Univer s mg tablet 8 ity of 00:00: [place] [facility] metoprolol 2020-0 Yes Univers succinate 8- ity of XL 50 mg 24 00:00: [place] hr tablet Medical Branch doxazosin 4 2019-0 Yes Univer s mg tablet 05-26 ity of 00:00: [place] [facility] metoprolol 2020-0 Yes Univers succinate 8 ity of XL 50 mg 24 00:00: [place] hr tablet Medical Branch doxazosin 4 2019-0 Yes Univer s mg tablet 05-26 ity of 00:00: [place] [facility] metoprolol 2020-0 Yes Univers succinate 05-26 ity of XL 50 mg 24 00:00: [place] hr tablet Medical Branch doxazosin 4 2019-0 Yes Univer s mg tablet 05-26 ity of 00:00: [place] [facility] metoprolol 2020-0 Yes Univers succinate 8 ity of XL 50 mg 24 00:00: [place] hr tablet Medical Branch doxazosin 4 2020-0 Yes Univer s mg tablet 05-26 ity of 00:00: [place] [facility] rivaroxaban 2020-0 Yes TAKE 1 Univ ers (XARELTO) 8-23 TABLET(15 ity o f 15 mg 00:00: MG) BY [place] tablet 00 MOUTH Medical DAILY Branch rivaroxaban 2020-0 Yes TAKE 1 Univ ers (XARELTO) 8-23 TABLET(15 ity o f 15 mg 00:00: MG) BY [place] tablet 00 MOUTH Medical DAILY Branch rivaroxaban 2020-0 Yes TAKE 1 Univ ers (XARELTO) 8-23 TABLET(15 ity o f 15 mg 00:00: MG) BY [place] tablet 00 MOUTH Medical DAILY Branch rivaroxaban 2020-0 Yes TAKE 1 Univ ers (XARELTO) 8-23 TABLET(15 ity o f 15 mg 00:00: MG) BY [place] tablet 00 MOUTH Medical DAILY Branch rivaroxaban 2019-0 Yes TAKE 1 Univ ers (XARELTO) 8-23 TABLET(15 ity o f 15 mg 00:00: MG) BY [place] tablet 00 MOUTH Medical DAILY Branch gemfibroziL 2020-0 Yes TAKE 1 Univ ers 600 mg 8-17 TABLET BY ity of tablet 00:00: MOUTH [place] 00 TWICE Medical DAILY Branch gemfibroziL 2020-0 Yes TAKE 1 Univ ers 600 mg 8-17 TABLET BY ity of tablet 00:00: MOUTH TWICE Medical DAILY Branch gemfibroziL 2020-0 Yes TAKE 1 Univ ers 600 mg 8-17 TABLET BY ity of tablet 00:00: MOUTH [place] TWICE Medical DAILY Branch gemfibroziL 2020-0 Yes TAKE 1 Univ ers 600 mg 8-17 TABLET BY ity of tablet 00:00: MOUTH TWICE Medical DAILY Branch gemfibroziL 2019-0 Yes TAKE 1 Univ ers 600 mg 8-17 TABLET BY ity of tablet 00:00: MOUTH TWICE Medical DAILY Branch losartan-hy 2020-0 Yes 1{tbl} Take 1 Un peter drochloroth 8-06 tablet by ity of iazide 00:00: mouth. [place] 100-25 mg 00 Medical per tablet Branch losartan-hy 2020-0 Yes 1{tbl} Take 1 Un peter drochloroth 8-06 tablet by ity of iazide 00:00: mouth. [place] 100-25 mg 00 Medical per tablet Branch losartan-hy 2020-0 Yes 1{tbl} Take 1 Un peter drochloroth 8-06 tablet by ity of iazide 00:00: mouth. [place] 100-25 mg 00 Medical per tablet Branch losartan-hy 2020-0 Yes 1{tbl} Take 1 Un peter drochloroth 8-06 tablet by ity of iazide 00:00: mouth. [place] 100-25 mg 00 Medical per tablet Branch losartan-hy 2020-0 Yes 1{tbl} Take 1 Un peter drochloroth 8-06 tablet by ity of iazide 00:00: mouth. [place] 100-25 mg 00 Medical per tablet Branch ezetimibe-s 2020-0 Yes TK 1 T PO U nivers imvastatin 8-04 Q NIGHT ity of 10-40 10-40 00:00: [place] mg tablet 00 Medical Branch pantoprazol 2020-0 Yes Univer s e 40 mg EC 8-04 ity of tablet 00:00: [place] 00 Medical Branch ezetimibe-s 2020-0 Yes TK 1 T PO U nivers imvastatin 8-04 Q NIGHT ity of 10-40 10-40 00:00: [place] mg tablet 00 Medical Branch pantoprazol 2020-0 Yes Univer s e 40 mg EC 8-04 ity of tablet 00:00: [place] [facility] ezetimibe-s 2020-0 Yes TK 1 T PO U nivers imvastatin 8-04 Q NIGHT ity of 10-40 10-40 00:00: [place] mg tablet 00 Medical Branch pantoprazol 2020-0 Yes Univer s e 40 mg EC 8-04 ity of tablet 00:00: [place] 00 Medical Branch ezetimibe-s 2020-0 Yes TK 1 T PO U nivers imvastatin 8-04 Q NIGHT ity of 10-40 10-40 00:00: [place] mg tablet 00 Medical Branch pantoprazol 2020-0 Yes Univer s e 40 mg EC 8-04 ity of tablet 00:00: [place] 00 Medical Branch ezetimibe-s 2020-0 Yes TK 1 T PO U nivers imvastatin 8-04 Q NIGHT ity of 10-40 10-40 00:00: [place] mg tablet 00 Medical Branch pantoprazol 2020-0 Yes Univer s e 40 mg EC 8-04 ity of tablet 00:00: [place] 00 Medical Branch finasteride 2020-0 Yes TK 1 T PO U nivers 5 mg tablet 7-30 QD ity of 00:00: [place] 00 Medical Branch finasteride 2020-0 Yes TK 1 T PO U nivers 5 mg tablet 7-30 QD ity of 00:00: [place] [facility] finasteride 2020-0 Yes TK 1 T PO U nivers 5 mg tablet 7-30 QD ity of 00:00: [place] 00 Medical Branch finasteride 2020-0 Yes TK 1 T PO U nivers 5 mg tablet 7-30 QD ity of 00:00: [place] [facility] finasteride 2020-0 Yes TK 1 T PO U nivers 5 mg tablet 7-30 QD ity of 00:00: [place] 00 Medical Branch amLODIPine 2020-0 Yes 5mg Take 5 mg Un peter 5 mg tablet 7-22 by mouth. ity of 00:00: [place] [facility] amLODIPine 2020-0 Yes 5mg Take 5 mg Un peter 5 mg tablet 7-22 by mouth. ity of 00:: [place] [facility] amLODIPine 2020-0 Yes 5mg Take 5 mg Un peter 5 mg tablet 7-22 by mouth. ity of 00:: [place] [facility] amLODIPine 2020-0 Yes 5mg Take 5 mg Un peter 5 mg tablet 7-22 by mouth. ity of 00:: [place] [facility] amLODIPine 2020-0 Yes 5mg Take 5 mg Un peter 5 mg tablet 7-22 by mouth. ity of 00:00: [place] [facility] amlodipine Yes 10mg Take 10 mg [facility] (NORVASC) 4-12 by mouth Colleg e 10 MG 14:43: nightly. of tablet 30 Medicin e aspirin EC Yes 81mg Take 81 mg [facility] 81 MG TBEC 4-12 by mouth Colle ge 14:43: two times of 30 daily. Medicin e Coenzyme Yes 200mg Take 200 Bayl or Q-10 200 MG 4-12 mg by [facility] CAPS 14:43: mouth. of 30 Medicin e fenofibrate Yes 160mg Take 160 [facility] (LOFIBRA) 4-12 mg by Soper 160 MG 14:43: mouth. of tablet 30 Medicin e fexofenadin Yes 180mg Take 180 [facility] e (APOLINAR) 4-12 mg by Soper 180 MG 14:43: mouth. of tablet 30 Medicin e fluticasone Yes 2{spray 2 Sprays [facility] (FLONASE) 4-12 } by Nasal Colleg e 50 MCG/ACT 14:43: route. of nasal spray 30 Medicin e Probiotic Yes 1mg Take 1 mg [facility] leonor Product (SM 4-12 by mouth. Col lege ACIDOPHILUS 14:43: of ) CAPS 30 Medicin e losartan-hy Yes 1{tbl} Take 1 Ba y[facility] drochloroth 4-12 tablet by Col lege iazide 14:43: mouth. of (HYZAAR) 30 Medicin 100-25 MG e per tablet magnesium Yes 400mg Take 400 Knott leonor oxide 4-12 mg by [facility] (MAG-OX) 14:43: mouth. of 400 MG 30 Medicin tablet e Melatonin 5 Yes 1mg Take 1 mg [facility] MG CAPS 4-12 by mouth. College 14:43: of 30 Medicin e metoprolol Yes 50mg Take 50 mg [facility] (TOPROL-XL) 4-12 by mouth. Col lege 50 MG XL 14:43: of tablet 30 Medicin e montelukast Yes 10mg Take 10 mg [facility] (SINGULAIR) 4-12 by mouth. Col lege 10 MG 14:43: of tablet 30 Medicin e IRON OR Yes 1mg Take 1 mg Baylo r 4-12 by mouth. [facility]oper 14:43: of 30 Medicin e [place]-3-aci Yes 1g Take 1 g Ba ylor d Ethyl 4-12 by mouth. [facility] Esters 1 G 14:43: of CAPS 30 Medicin e pantoprazol Yes 40mg Take 40 mg [facility] e 4-12 by mouth. [facility] (PROTONIX) 14:43: of 40 MG 30 Medicin tablet e montelukast Yes TK 1 T PO [facility] (SINGULAIR) 1-13 QAM. [facility] 10 MG 00:00: of tablet 00 Medicin e Immunizations Ordered Immunization Filled Immunization Date Status Commen ts Source Name Name PFIZER COVID-19 MRNA 2021-06-25 Completed [facility]ist VACCINATION 00:00:00 Hospital PFIZER COVID-19 MRNA 2020-10-25 Completed Meth odist VACCINATION 00:00:00 Hospital PFIZER COVID-19 MRNA 2020-10-04 Completed Meth odist VACCINATION 00:00:00 Hospital Pneumococcal 2020-05-01 Completed [facility] Polysaccharide 00:00:00 Hospital Zoster Vaccine 2019-07-03 Completed [facility] Recombinant 00:00:00 Hospital FLUAD PF 2019-05-25 Completed [facility] 00:00:00 Hospital Pneumococcal 2019-04-30 Completed [facility] Conjugate 13-Valent 00:00:00 Hospi lindsay Zoster Vaccine 2019-04-30 Completed [facility] Recombinant 00:00:00 Hospital Vital Signs Vital Name Observation Time Observation Value Comments Source Systolic blood 2020-05-28 14:52:00 125 mm[Hg] Torey michaels [facility] Diastolic blood 2020-05-28 14:52:00 65 mm[Hg] Unive [facility] pressure Medical Branch Heart rate 2020-05-28 14:52:00 70 /min [facility] Body weight 2020-05-28 14:52:00 111.948 kg [facility] Oxygen saturation 2020-05-28 14:52:00 96 /min [facility] in Arterial blood Medical Br anch by Pulse oximetry Systolic blood 2022-08-05 14:17:00 120 mm[Hg] [facility] pressure Diastolic blood 2022-08-05 14:17:00 66 mm[Hg] [facility] pressure Heart rate 2022-08-05 14:17:00 78 /min [facility] Body height 2022-08-05 14:17:00 177.8 cm [facility] Body weight 2022-08-05 14:17:00 102.059 kg [facility] BMI 2022-08-05 14:17:00 32.28 kg/m2 [facility] Oxygen saturation 2022-08-05 14:17:00 97 /min [facility] in Arterial blood by Pulse oximetry Procedures Procedure Date / Time Performing Clinician Source Performed COMPREHENSIVE METABOLIC 2023-02-03 13:54[facility]23-02-03 [facility]-03 [facility] 2023-02-03 13:54:00 Price [facility] HEMOGLOBIN A1C 2023-02-03 13:54:00 Daniel [facility] ESTIMATED GFR 2023-02-03 13:54:00 Price [facility] ECG 12-LEAD 2022-08-05 14:20:50 Daniel [facility] PROSTATE SPECIFIC 2022-07-29 15:10:00 Daniel [facility] ANTIGEN COMPREHENSIVE METABOLIC 2022-07-29 15:10:00 [facility] HEMOGRAM 2022-07-29 15:10:00 Daniel [facility] THYROID STIMULATING 2022-07-29 15:10:00 Daniel [facility] HORMONE LIPID PANEL 2022-07-29 15:10:00 Daniel [facility] ESTIMATED GFR 2022-07-29 15:10:00 Daniel [facility] HEMOGLOBIN A1C 2022-07-29 14:07:00 Daniel [facility] ECG 12-LEAD 2022-04-29 15:55:02 Afsaneh [facility] XR HIP 2-3 VIEWS RIGHT 2022-04-22 23:23[facility] 2022-04-22 23:23[facility]+ VW LEFT 2022-04-22 22:57:42 [facility] XR SHOULDER 2+ VW LEFT 2022-04-22 22:57:28 Ozzie, [facility] XR HAND 2 VW RIGHT 2022-04-22 22:55:17 [facility] SEDIMENTATION RATE 2022-04-22 20:08:00 [facility] C-REACTIVE PROTEIN 2022-04-22 20:08:00 [facility] RHEUMATOID FACTOR 2022-04-22 20:08:00 [facility] TTE COMPLETE, W 2022-02-11 16:32:34 Daniel [facility] CONTRAST, W DOPPLER ([id number]) CV STRESS TEST NUCLEAR 2022-02-11 15:08:49 Jose Price [facility] CARDIO NM MYOCARDIAL PERFUSION 2022-02-11 15:08:49 [facility] DAY ECG 12-LEAD 2022-02-11 12:25:05 Daniel [facility] EXTERNAL PROVIDER 2020-06-13 05:01:00 Doctor Unassigned, No [facility] RECORDS Name Medical Branch ASSIGNMENT OF BENEFITS 2020-05-28 14:34:43 Doctor Unassigned, No [facility] Name Medical Branch OCT, RETINA - OU - BOTH 2020-04-22 14:25:44 Hafsa Navarrete [facility] Medicine Plan of Care Planned Activity Planned Date Details Comments Source Future Scheduled Test 2023-02-11 COVID-19 VACCINE (4 [facility] 14:51:04 - Booster for Pfizer series) [code = COVID-19 VACCINE (4 - Booster for Pfizer series)] Future Scheduled Test 2023-02-11 INFLUENZA VACCINE [facility] 14:51:04 [code = INFLUENZA VACCINE] Future Scheduled Test TETANUS SHOT [facility] (ADULT) [code = Medicine TETANUS SHOT (ADULT)] Future Scheduled Test FALL SCREEN [code = [facility] FALL SCREEN] Medicine Future Scheduled Test PNEUMOVAX >=65 [facility] (PPSV23) [code = Medicine PNEUMOVAX >=65 (PPSV23)] Future Scheduled Test MEDICARE AWV [facility] (Initial) [code = Medicine MEDICARE AWV (Initial)] Future Scheduled Test FLU VACCINE > 6 [facility] of MONTHS [code = FLU Medicine VACCINE > 6 MONTHS] Future Appointment 2023-04-01 Divine Madison MD, [facility] 07:30:[address] [place] [address]; [address], [place] [address] Future Appointment 2023-04-01 Divine Madison MD, [facility] 07:30:[address] [place] [address]; [facility] [address] [address] Procedure 2023-04-01 SEPTOPLASTY, NASAL [facility] 12:30:00 Encounters Start End Encounter Admission Attending Care Care Encounter Source Date/Time Date/Time Type Type Clinicians Facility Department ID 2023-02-03 2023-02-03 Lab Daniel, 1.2.840.1 [id number] Methodi 08:45:00 08:50:00 Jose Booth [address]11.1.[address] 3.430.2.7 Hospit a .3.558356 l .8 2023-02-03 2023-02-03 Outpatient DANIEL [facility] [id number] [address] [place] 00:00:00 00:00:00 JOSE [address] 2023-02-03 2023-02-03 Travel 1.2.840.1 1.2.353.686 [id number] [id number] Methodi 00:00:00 00:00:[address] 3.430.2.7 0.2.7.3.698 Ho spita .3.971936 084.8 l .8 2023-01-28 2023-01-28 Orders Radha-Maritza 1.2.840.1 [id number] Methodi 00:00:00 00:00:00 Only Mihcelle hadley [address]144.1.[address] Una 3.430.2.7 Hospit a .3.293191 l .8 2022-08-05 2022-08-05 Office Daniel, 1.2.840.1 [id number] Methodi 08:00:00 09:25:20 Visit Josejoseph Booth [address]124.1.[address] 3.430.2.7 Hospit a .3.124023 l .8 2022-08-05 2022-08-05 [facility] [id number] [address] [place] 00:00:00 00:00:00 JOSE [address] 2022-08-05 2022-08-05 Travel 1.2.840.1 1.2.527.701 0285 [id number] Methodi 00:00:00 00:00:[address] 3.430.2.7 0.2.7.3.698 Ho spita .3.958079 084.8 l .8 2022-07-29 2022-07-29 Lab Daniel, 1.2.840.1 [id number] 4976 Methodi 10:15:00 10:20:00 Jose[address]oseph Booth [address] 3.430.2.7 Hospit a .3.533901 l .8 2022-07-29 2022-07-29 Out[facility] [id number] [place] 00:00:00 00:00:00 JOSE [address] 2022-07-29 2022-07-29 Travel 1.2.840.1 1.2.235.170 7516 050193 Methodi 00:00:00 00:00:[address] 3.430.2.7 0.2.7.3.698 Ho spita .3.158000 084.8 l .8 2022-07-26 2022-07-26 Orders Radha-Maritza 1.2.840.1 [id number] Methodi 00:00:00 00:00:00 Only Michelle hadley 42135.1.[address] Una 3.430.2.7 Hospit a .3.842464 l .8 2022-05-07 2022-05-07 Telemedici [facility], 1.2.840.1 [id number] Methodi 08:00:00 11:16:42 ne Donna [address]2634.1.[address] 3.430.2.7 Hospit a .3.520946 l .8 2022-05-07 2022-05-07 [facility] [id number] [address] [place] 00:00:00 00:00:00 DONNA [address] 2022-04-29 2022-04-29 Office [facility], 1.2.840.1 [id number] 2479 Methodi 11:00:00 11:15:16 Visit Summer Lea 53277.1.[address] 3.430.2.7 Hospit a .3.699469 l .8 2022-04-29 2022-04-29 Outpatient [facility] [id number] 153 [place] 00:00:00 00:00:[address] 2022-04-29 2022-04-29 Travel 1.2.840.1 1.2.244.273 1024 [id number] Methodi 00:00:00 00:00:[address] 3.430.2.7 0.2.7.3.698 Ho spita .3.615202 084.8 l .8 2022-04-22 2022-04-22 [facility] Shahnaz, 1.2.840.1 [id number] 07942 02846 Methodi 16:06:15 23:59:00 [facility] 84740.1.1 294 s t 3.430.2.7 Hospit a .3.351834 l .8 2022-04-22 2022-04-22 [facility], 1.2.840.1 [id number] 57858 Methodi 16:05:46 16:05:46 Encounter Donna 63588.1.1 292 s t 3.430.2.7 Hospit a .3.270314 l .8 2022-04-22 2022-04-22 [facility], 1.2.840.1 [id number] 99737 Methodi 16:05:21 16:05:21 Encounter Donna 18426.1.1 108 s t 3.430.2.7 Hospit a .3.717468 l .8 2022-04-22 2022-04-22 [facility], 1.2.840.1 [id number] 16784 Methodi 16:05:01 16:05:01 Encounter Donna 32709.1.1 107 s t 3.430.2.7 Hospit a .3.856485 l .8 2022-04-22 2022-04-22 [facility], 1.2.840.1 [id number] 54492 55081 Methodi 16:04:45 16:04:45 Encounter Donna 67214.1.1 106 s t 3.430.2.7 Hospit a .3.655116 l .8 2022-04-22 2022-04-22 [facility], 1.2.840.1 [id number] 9353 Methodi 14:20:00 15:02:43 Visit Donna 04343.1.[address] 3.430.2.7 Hospit a .3.113032 l .8 2022-04-22 2022-04-22 Outpatient SHAHNAZ, [facility] [id number] [address] [place] 00:00:00 00:00:00 DONNA [address] 2022-04-22 2022-04-22 Outpatient SHAHNAZ, [facility] [id number] 188 [place] 00:00:00 00:00:00 DONNA [address] 2022-04-22 2022-04-22 Outpatient GANTI, [facility] [id number] 188 [place] 00:00:00 00:00:00 DONNA [address] 2022-04-22 2022-04-22 Outpatient GANTI, [facility] [id number] 188 [place] 00:00:00 00:00:00 DONNA 108 Meth[address] 2022-04-22 2022-04-22 Outpatient GANTI, [facility] [id number] 188 [place] 00:00:00 00:00:00 DONNA 292 Meth[address] 2022-04-22 2022-04-22 Outpatient GANTI, [facility] [id number] 188 [place] 00:00:00 00:00:00 DONNA 294 Meth[address] 2022-04-22 2022-04-22 Orders Daniel, 1.2.840.1 [id number] 8800 Methodi 00:00:00 00:00:00 Only Josejoseph Booth 63858.1.[address] 3.430.2.7 Hospit a .3.365349 l .8 2022-04-22 2022-04-22 Travel 1.2.840.1 1.2.546.348 7877 [id number] Methodi 00:00:00 00:00:[address] 3.430.2.7 0.2.7.3.698 Ho spita .3.253273 084.8 l .8 2022-02-11 2022-02-11 Office Daniel, 1.2.840.1 [id number] 6541 Methodi 11:30:00 12:51:16 Visit Josejoseph Booth 85115.1.[address] 3.430.2.7 Hospit a .3.790083 l .8 2022-02-11 2022-02-11 Outpatient PRICE, [facility] [id number] 517 [place] 00:00:00 00:00:00 JOSE 894 Method i 2022-02-11 2022-02-11 Outpatient DANIEL, [facility] [id number] 517 [place] 00:00:00 00:00:00 JOSE 890 Method i 2022-02-11 2022-02-11 Outpatient DANIEL, [facility] [id number] 517 [place] 00:00:00 00:00:00 JOSE 891 Method i 2022-02-11 2022-02-11 [facility] 1.2.840.1 1.2.237.149 6362 153856 Methodi 00:00:00 00:00:00 83201.1.1 350.1.13.43 1 3.430.2.7 0.2.7.3.698 spita .3.343351 084.8 l .8 2022-01-07 2022-01-07 Outpatient GARCIA, [facility] [id number] 7[address] [place] 00:00:00 00:00:00 APOOR 622 Method i 2021-10-01 2021-10-01 Outpatient LEOLA, [facility] [id number] 947 [place] 00:00:00 00:00:00 HIRA 925 Method i 2021-08-04 2021-08-04 Outpatient DANIEL, [facility] [id number] 529 [place] 00:00:00 00:00:00 JOSE 993 Method i 2021-07-30 2021-07-30 Outpatient DANIEL, [facility] [id number] 198 [place] 00:00:00 00:00:00 JOSE 977 Method i 2021-06-25 2021-06-25 Outpatient [facility] [id number] 464 [place] 00:00:00 00:00:00 253 Method i 2021-06-22 2021-06-22 Outpatient JOSE, [facility] [id number] 799 [place] 00:00:00 00:00:00 APOOR 357 Method i 2021-06-18 2021-06-18 Outpatient MATT, [facility] [id number] [address] [place] 00:00:00 00:00:00 JAZ 054 Meth margarita 2021-06-16 2021-06-16 Outpatient MATT, [facility] [id number] 718 [place] 00:00:00 00:00:00 JAZ 639 Meth margarita 2021-05-14 2021-05-14 Outpatient GARCIA, [facility] [id number] 762 [place] 00:00:00 00:00:00 APOOR 071 Method i 2021-05-04 2021-05-04 Outpatient GARCIA, [facility] [id number] 046 [place] 00:00:00 00:00:00 APOOR 109 Method i 2021-04-28 2021-04-28 Inpatient YOLANDA, [facility] 021 [id number] 7699 [place] 00:00:00 00:00:00 KIMMY 520 Method i 2021-04-27 2021-04-27 Outpatient GARCIA, [facility] [id number] 587 [place] 00:00:00 00:00:00 APOOR 253 Method i 2021-04-24 2021-04-24 Outpatient GARCIA, [facility] [id number] 765 [place] 00:00:00 00:00:00 APOOR 664 Method i 2021-04-24 2021-04-24 Outpatient GARCIA, [facility] [id number] 466 [place] 00:00:00 00:00:00 APOOR 962 Method i 2021-04-01 2021-04-01 Outpatient LEOLA, [facility] [id number] 879 [place] 00:00:00 00:00:00 HIRA 267 Method i 2021-03-26 2021-03-28 Outpatient RODRIGOLAH, VIPULAD [facility] 012 [id number] [place] 00:00:00 00:00:00 391 Method i 2020-10-25 2020-10-25 Outpatient [facility] [id number] 674 [place] 00:00:00 00:00:00 154 Method i 2020-10-22 2020-10-22 Outpatient DANIEL, [facility] [id number] 080 [place] 00:00:00 00:00:00 JOSE 987 Method i 2020-10-22 2020-10-22 Outpatient [facility] [id number] 080 [place] 00:00:00 00:00:00 985 Method i 2020-10-22 2020-10-22 Outpatient [facility] [id number] 080 [place] 00:00:00 00:00:00 986 Method i 2020-10-21 2020-10-21 Outpatient DANIEL, [facility] [id number] 829 [place] 00:00:00 00:00:00 JOSE 514 Method i 2020-10-19 2020-10-19 Patient SHANTI Arthur 1.2.840.114 [id number] Univers 00:00:00 00:00:00 Outreach Jhonny [facility] 350.1.13.[address] [facility] [phone] De dical [address] 2020-10-04 2020-10-04 Outpatient [facility] [id number] 224 [place] 00:00:00 00:00:[address] 2020-07-16 2020-07-16 [facility] [id number] Univers 13:30:00 13:30:00 WENTONG ity [facility] [place] 2020-06-13 2020-06-13 Orders Doctor SEB 1.2.840.114 [id number] Univers 00:00:00 00:00:00 Only Unassigned, ANGELA 350.1.13.10 ity of [place] [facility] 4.2.7.2.686 Samuel as [phone] [address] 2020-06-03 2020-06-03 Gift Basket Packer 2, Adc Lab [facility] 1.2.840.114 [id number] Univers 09:07:18 09:22:18 Visit Rhonda Albarado 350.1.13.10 [place] [phone] De lulal nal 353 [facility] 2020-06-03 2020-06-03 Outpatient R [facility] [id number] Univers 09:15:00 09:15:00 ity [facility] [place] 2020-05-28 2020-05-28 [facility] 1.2.840.114 [id number] Univers 09:36:12 10:39:14 Visit Rhonda Brand 350.1.13.10 i [place] [phone] De dical nal 220 [facility] 2020-05-28 2020-05-28 Outpatient [facility] [id number] Univers 09:30:00 09:30:00 JACKELYNONG ity [facility] [place] 2020-05-28 2020-05-28 Orders Doctor GRIGSBY 1.2.840.114 [id number] Univers 00:00:00 00:00:00 Only Unassigned, ANGELA 350.1.13.10 ity of [place] [facility] 4.2.7.2.686 Samuel as [phone] [facility] javier [address] 2020-04-22 2020-04-22 Office Dagoberto [facility] 1.2.840.114 [id number] [facility] 09:07:43 09:17:43 Visit a, Hafsa AMBULATOR 350.1.13.21 College Y 0.2.7.2.686 of [phone] [facility] maverick 300 e 2020-04-16 2020-04-16 Outpatient DANIEL, [facility] [id number] 037 [place] 00:00:00 00:00:00 JOSE [address] 2020-04-15 2020-04-15 Outpatient LEOLA, [facility] [id number] 445 [place] 00:00:00 00:00:00 HIRA [address] 2020-04-10 2020-04-10 Outpatient DANIEL, [facility] [id number] 738 [place] 00:00:00 00:00:00 JOSE [address] 2015-12-04 2015-12-04 Outpatient [facility] [id number] Memoria 01:00:00 05:59:00 r [place] 01 l [facility] 2015-12-04 2015-12-04 Outpatient [facility] [id number] Memoria 01:00:00 05:59:00 r [place] 01 l [facility] 2015-12-03 2015-12-03 Outpatient Manolo Degroot [facility] [id number] 19:00:00 23:59:00 T 2015-12-03 2015-12-03 Outpatient [facility] [id number] Memoria 01:00:00 05:59:00 r [place] 00 l [facility] 2015-12-03 2015-12-03 Outpatient [facility] [id number] Memoria 01:00:00 05:59:00 r [place] 00 l [facility] 2015-12-02 2015-12-02 Outpatient Manolo Degroot [facility] [id number] 19:00:00 23:59:00 T 00 Results Test Description Test Time Test Comments Results Result Comments Source ECG 12 lead 2022-08-05 14:33:28 Test Item Value Reference Range Interpretation Comme nts Ventricular rate (test code = 253) 66 Atrial rate (test code = 255) 66 [place] interval (test code = 266) 216 QRSD interval (test code = 260) 164 QT interval (test code = 264) 430 QTC interval (test code = 265) 450 P axis 1 (test code = 267) 40 QRS axis 1 (test code = 268) 144 T wave axis (test code = 270) 19 EKG impression (test code = 273) Sinus rhythm with 1st degree AV bl ock-Right bundle branch block-Left posterior fascicular block-^^^ Bifascicular block ^^^-Possible Inferior infarct , age undetermined-Abnormal ECG-In automated comparison with ECG of 29-APR-2022 10:55,-No significant change was found- [facility] [id number] 16:10:00 Test Item Value Reference Range Interpretation Comments Sedimentation rate 11 See_Comment [Automat ed (test code = 4537-7) message ] The system which generated this result transmitted reference range : 0 - 30 mm/hr. T he reference range was not used to interpret this result as normal/abnormal . KIM (test code = Performed at: ) - [facility] [address] [id number] Director: Nicolás Mccrary MD, Phone: [phone] [facility] [id number] 13:12:00 Test Item Value Reference Range Interpretation Comments CRP (test code = 2 mg/L 0-1988-01) KIM (test code = Performed at: ) [facility] [address] [id number] Director: Nicolás Mccrary MD, Phone: [phone] [facility] [id number] 13:12:00 Test Item Value Reference Range Interpretation Comments Rheumatoid <10.0 See_Comment [Automated arthritis latex message] The turbid (test code system whi ch = 84205-6) generated this result transmit diana reference range : <14.0 IU/mL. Th e reference range was not used to interpret this result as normal/abnormal . KIM (test code = Performed at: KIM) [address] [id number] Director: Nicolás Mccrary MD, Phone: [phone] [facility]-CoV-2 (COVID-19) RNA [Presence] in Respiratory specimen by JASON with probe [id number] 22:28:21 Test Item Value Reference Range Interpretation Comments SARS-CoV-2 (COVID-19) RNA Not detected Not-Detected [Presence] in Respiratory specimen by JASON with probe detection (test code = 27047-7) Whether patient is employed in a healthcare setting (test code = 09365-1) Whether the patient has symptoms related to condition of interest (test code = 81352-8) Patient was hospitalized because of this condition (test code = 49463-7) Whether the patient was admitted to intensive care unit (ICU) for condition of interest (test code = 42716-0) Whether patient resides in a congregate care setting (test code = 90475-6) [facility]-CoV-2 (COVID-19) RNA [Presence] in Respiratory specimen by JASON with probe [id number] 22:54:52 Test Item Value Reference Range Interpretation Comments SARS-CoV-2 (COVID-19) RNA Not detected Not-Detected [Presence] in Respiratory specimen by JASON with probe detection (test code = 12919-1) Whether patient is employed in a healthcare setting (test code = 26746-6) Whether the patient has symptoms related to condition of interest (test code = 66496-2) Patient was hospitalized because of this condition (test code = 40161-0) Whether the patient was admitted to intensive care unit (ICU) for condition of interest (test code = 37917-5) Whether patient resides in a congregate care setting (test code = 89642-0) [facility] - BOTH [id number] 15:55:59OCT Macula Interpretation7/20 OD OS Quality Good Not done Interpretation 314[facility]- XR FLUORO FOR SPINE [id number] 16:52:00 Patient Name: SRINIVASCOLUMBA Unit No: [id number] EXAMS: CPT CODE: [id number] XR FLUORO FOR SPINE INJ 51761 LUMBAR FACET INJECTION DIAGNOSTIC REFERRAL PHYSICIAN: None PREOPERATIVE DIAGNOSIS: Lumbar spondylosis without myelopathy or radiculopathy POSTOPERATIVE DIAGNOSIS: Lumbar spondylosis without myelopathy or radiculopathy PROCEDURE PERFORMED: 1. Fluoroscopically guided needle localization ofthe right L4-5 intraspinal synovial cyst with aspiration and decompression. 2. Fluoroscopically guided needle localization of the bilateral L4-5 and bilateral L5-S1 facets with arthrograms and diagnostic injection of local anesthetic and steroid. FINDINGS: Grade 2 spondylolisthesis is present at L4-5.The right L4-5 facet shows a large synovial [...] obtaining stable vital signs, informed consent and I V access patient was taken to the fluoroscopy suite where the patient was placed in a prone positionwith All extremities padded and appropriate monitors placed. The patient was sterilely prepped prepped and draped over the lumbosacral spine. Using fluoroscopic visualization, the insertion sites weremarked for a paravertebral approach to each joint. [...] paravertebral approach sublaminar. Using standard technique a 25- gauge needle was advanced into the cyst and aspiration was positive for 0.5 mL of clear serous straw-colored fluid. Several passes into the cyst were made. R etrograde flow of contrast was seen into the cyst needle. The needle was removed. Bupivicaine 0.75% 0.5 mL with Lidocaine 4% 0.25 ml and triamcinolone 12 mg was then injected incrementally into each joint. There were no signs of intravascular or intrathecal uptake. The patient's vital signs remained stable. All needles were removed and the patient was taken to the PACU in good condition. [facility] NAME: COLUMBA ESPINO [address] PHYS: Yovany Coronado MD [place] [address] : 1940 AGE: 78 SEX: M LOC: TORRES PHONE #: [phone] EXAM DATE: 05/31/2019 STATUS: REG [facility] FAX #: [phone] RAD #: D/C DT PAGE 1 Signed Report (CONTINUED) Patient Name: COLUMBA ESPINO Unit No: [id number] EXAMS: CPT CODE: [id number] XR FLUORO FOR SPINE INJ 02592 (Continued) at 1652 Reported and signed by: oYvany Gao M.D. CC: Yovany Gao MD Technologist: DONNA WONG RT(R) Transcribed D/ (1651) Najma [facility] NAME: COLUMBA ESPINO [address] [facility] [address] PHYS: Yovany Coronado MD [place] [address] : 1940 AGE: 78SEX: M LOC: TORRES PHONE #: [phone] EXAM DATE: 05/31/2019 STATUS: REG [facility] FAX #: [phone] RAD #: D/C DT PAGE 2 Signed Report Patient Name: COLUMBA ESPINO Unit No: [id number] EXAMS: CPT CODE: [id number] XR FLUORO FOR SPINE INJ 62981 (Continued) Orig Print D/T: S: 05/31/2019 (1654) [facility] NAME: COLUMBA ESPINO [address] [facility] [address] PHYS: Yovany Mendoza MD [place] [address] : 1940 AGE: 78 SEX: M LOC: TORRES PHONE #: [phone] EXAM DATE: 05/31/2019 STATUS: REG SDC FAX #: [phone] RAD #: D/C DT PAGE 3 Signed Report- XR FLUORO FOR SPINE [id number] 19:02:00 Patient Name: COLUMBA ESPINO Unit No: [id number] EXAMS: CPT CODE: [id number] XR FLUORO FOR SPINE INJ 62960 LUMBAR FACET INJECTION DIAGNOSTIC REFERRAL PHYSICIAN: None [...] noting complete relief of his low back andradiating pain. Preinjection VAS 6-7/10. Postinjection VAS 0/10. Steroid response pending follow-up.ESTIMATED BLOOD LOSS: Minimal ANESTHESIA: TIVA COMPLICATIONS: None [...] a paravertebral approach. Using standard technique a 25- gauge needle was advanced into the cyst were [...] were no signs of intravascular or intrathecal [facility] NAME: COLUMBA ESPINO [address] [facility] [address] PHYS: Yovany Coronado MD [place], [place] [address] : 1940 AGE: 78 SEX: M LOC: TORRES PHONE #: [phone] EXAM DATE: 11/27/2018 STATUS: REG [facility] FAX #: [phone] RAD #: D/C DT PAGE 1 Signed Report (CONTINUED) Patient Name: COLUMBA ESPINO Unit No: [id number] EXAMS: CPT CODE: [id number] XR FLUORO FOR SPINE INJ 00606 (Continued) uptake. The patient's vital signs remained stable. All needles were removed and the patient was taken to the PACU in good condition. at 1902 Reported and signed by: Yovany Gao M.D. CC: Yovany Gao MD Technologist: GREGORY RIVERA RT(R) Transcribed D/ (1901) [facility]: COLUMBA ESP[facility] [address] [facility] [address] PHYS: Yovany Coronado [place], [place] [address] : 1940 AGE: 78 SEX: M LOC: TORRES PHONE #: [phone] EXAM DATE: 11/27/2018 STATUS: REG SD FAX #: [phone] RAD #: D/C DT PAGE 2 Signed ReportPatient Name: COLUMBA ESPINO Unit No: [id number] EXAMS: CPT CODE: [id number] XR FLUORO FOR SPINE INJ 87996 (Continued) Orig Print D/T: S: 11/27/2018 (1905) [facility] NAME: COLUMBA ESPINO [address] [facility] PHYS: Yovany Coronado MD [place], [place] [address] : [birth year] AGE: 78 SEX: M LOC: Y.SERAFIN PHONE #: [phone] EXAM DATE: 11/27/2018 STATUS: REG SDC FAX #: [phone] RAD #: D/C DT PAGE 3 Signed Report- XR L-SPINE W/BEND [id number] 10:55:00 Patient Name: COLUBMA ESPINO Unit No: [id number] EXAMS: CPT CODE: [id number] XR L-SPINE W/BENDVIEW 46565 LUMBAR SPINE 5 VIEWS PLUS FLEXION AND EXTENSION COMMENT: COMPARISON: No prior exams available. There is a scoliosis convex right. Vertebral body heights are maintained. Endplate degenerative change and interspace narrowing is seen from L4 to S1 with grade 1 spondylolisthesis at L4-5. No abnormal motion is seen with flexion and extension. at 1055 Reported and signed by: Andre Hurt MD CC: Yovany Gao MD Technologist: LANE STEINER, RT(R) Transcribed D/ (7435) tDARWINJCL [facility] NAME: COLUMBA ESPINO [address] [facility] PHYS: Yovany Coronado MD : 1940 AGE: 77 SEX: M [place] [address] LOC: Y.MRI PHONE #: [phone] EXAM DATE: 10/30/2018 STATUS: DEP CLI FAX #: [phone] RAD #: D/C DT PAGE 1 Signed Report Patient Name: COLUMBA ESPINO Unit No: [id number] EXAMS: CPT CODE: [id number] XR L-SPINE W/BEND VIEW [id number] (Continued) Orig Print D/T: S: 10/31/2018 (1058) [facility] NAME: COLUMBA ESPINO [address] [facility] [address] PHYS: Yovany Coronado MD : 1940 AGE: 77 SEX: M [place], [place] [address] LOC: Y.MRI PHONE #: [phone] EXAM DATE: 10/30/2018 STATUS: DEP CLI FAX #: [phone] RAD #: D/C DT PAGE 2 Signed Report- MRI L-SPINE W/O [id number] 10:10:00 Patient Name: COLUMBA ESPINO Unit No: [id number] EXAMS: CPT CODE: [id number] MRI L-SPINE W/O CONT [id number] DIAGNOSIS: 1. At L1-2 there is a mild retrolisthesis and associated disc bulging with mildleft foraminal narrowing without right-sided stenosis. No canal [...] expected location. The description these findings assumes anormal count of 5 lumbar type vertebra. at 1010 Reported and signed by: Andre Hurt MD CC: Yovany Gao MD Technologist:CITLALI LALA MRI Transcribed D/ (1010) t.BRETL [facility] NAME: COLUMBA ESPINO [address] [facility] PHYS: Yovany Coronado MD : 1940 AGE: 77 SEX: [place] [address] LOC: Y.MRI PHONE #: [phone] EXAM DATE: 10/30/2018 STATUS: DEP CLI FAX #: [phone] RAD #: D/C DT PAGE 1 Signed Report Patient Name: COLUMBA ESPINO Unit No: [id number] EXAMS: CPT CODE: [id number] MRI L-SPINE W/O CONT [id number] (Continued) Orig Print D/T: S: 10/31/2018 (1014) [facility] NAME: COLUMBA ESPINO [address] [facility] PHYS:Yovany Coronado MD : 1940 AGE: 77 SEX: [place] [address] LOC: Y.MRI PHONE #: [phone] EXAM DATE: 10/30/2018 STATUS: DEP CLI FAX #: [phone] RAD #: D/C DT PAGE 2 Signed Report
--- NOTE | 2023-02-11 15:27 | RAD REPORT ---
EXAM DESCRIPTION: RAD - Shoulder Left 2 View - 02/11/2023 3:20 pm CLINICAL HISTORY: PAIN FINDINGS: No fracture or dislocation seen. Mild diffuse osteopenia.
--- NOTE | 2023-02-11 15:31 | RAD REPORT ---
EXAM DESCRIPTION: RAD - Femur Left - 02/11/2023 3:21 pm CLINICAL HISTORY: Pain;Swelling COMPARISON: No comparisons FINDINGS: No acute fracture or dislocation seen. Left total knee arthroplasty. Atherosclerosis.
--- NOTE | 2023-02-11 15:32 | RAD REPORT ---
EXAM DESCRIPTION: RAD - Knee Left 3 View - 02/11/2023 3:21 pm CLINICAL HISTORY: Pain;Swelling COMPARISON: <Comparisons> FINDINGS: There is a large amount of soft tissue swelling anterior knee. Left total knee arthroplast y noted. No fracture seen.
--- NOTE | 2023-02-11 15:46 | RAD REPORT ---
EXAM DESCRIPTION: CT - Knee Left Wo Con - 02/11/2023 3:33 pm CLINICAL HISTORY: fall, significant swelling, possible tear vs hemat COMPARISON: No comparisons FINDINGS: There is a large hematoma anterior knee soft tissues measuring 16 x 10 centimeters. A left total knee arthroplasty is noted. No gross fracture. Atherosclerosis. IMPRESSION: Large anterior knee soft tissue hematoma. All CT scans are performed using dose optimization technique as appropriate and may include automated exposure control or mA/KV adjustment according to patient size.
--- NOTE | 2023-02-11 16:04 | ER ---
Nurse's Notes [facility] Name: Davin Rodriguez Age: 82 yrs Sex: Male : 1940 Arrival Date: 02/11/2023 Time: 14:25 Bed IW2 Private MD: Diagnosis: Traumatic hematoma of left lower extremity;Contusion of left shoulder, initial encounter Presentation: 02/11 14:36 Chief complaint: Fell over when attempting to lift weights this morning, now c/o left hb knee swelling, bruising, and pain 5/10. Also reports left shoulder pain. Coronavirus screen: At this time, the client does not indicate any symptoms associated with coronavirus-19. Ebola Screen: No symptoms or risks identified at this time. Initial Sepsis Screen: Does the patient meet any 2 criteria? No. Patient's initial sepsis screen is negative. Does the patient have a suspected source of infection? No. Patient's initial sepsis screen is negative. Risk Assessment: Do you want to hurt yourself or someone else? Patient reports no desire to harm self or others. Onset of symptoms was February 11, 2023. 14:36 Method Of Arrival: Wheelchair hb 14:36 Acuity: SARAH 4 hb Triage Assessment: 14:36 General: Appears in no apparent distress. Behavior is calm, cooperative. Pain: Pain hb currently is 5 out of 10 on a pain scale. Neuro: Level of Consciousness is awake, alert, obeys commands, Oriented to person, place, time, situation. Cardiovascular: Patient's skin is warm and dry. Respiratory: Respiratory effort is even, unlabored, Respiratory pattern is regular, symmetrical. Historical: - Allergies: 14:36 Ciprofloxacin; hb 14:36 finasteride; hb 14:36 tamsulosin; hb - PMHx: 14:36 cardiac bypass x5; Hypertension; hb - Immunization history:: Adult Immunizations up to date. - Social history:: Smoking status: Patient denies any tobacco usage or history of. - Family history:: not pertinent. - Hospitalizations: : No recent hospitalization is reported. Screenin:13 [facility] ED Fall Risk Assessment (Adult) Score/Fall Risk Level 0 - 2 = Low Risk hb Oriented to surroundings, Maintained a safe environment. Abuse screen: Denies threats or abuse. Denies injuries from another. Nutritional screening: No deficits noted. Tuberculosis screening: No symptoms or risk factors identified. Assessment: 14:45 General: See triage assessment. hb 16:13 Reassessment: Patient appears in no apparent distress at this time. Patient and/or hb family updated on plan of care and expected duration. Pain level reassessed. Patient is alert, oriented x 3, equal unlabored respirations, skin warm/dry/pink. Vital Signs: 14:36 BP 148 / 69; Pulse 83; Resp 16; Temp 97.9; Pulse Ox 100% ; Weight 117.93 kg; Height 6 hb ft. 1 in. ; Pain 5/10; 14:36 Body Mass Index 34.30 (117.93 kg, 185.42 cm) hb 14:36 Pain Scale: Adult hb ED Course: 14:28 Patient arrived in ED. rg4 14:34 Akosua Dill, RN is Primary Nurse. hb 14:34 Jose Elias Longoria MD is Attending Physician. rn 14:36 Triage completed. hb 14:38 Arm band placed on. hb 15:22 XRAY Knee LEFT 3 view In Process Unspecified. EDMS 15:22 XRAY Femur LEFT In Process Unspecified. EDMS 15:22 XRAY Shoulder LEFT 2 view In Process Unspecified. EDMS 15:35 Knee Left Wo Con In Process Unspecified. EDMS 16:13 Patient has correct armband on for positive identification. hb 16:13 No provider procedures requiring assistance completed. Patient did not have IV access hb during this emergency room visit. Administered Medications: No medications were administered Medication: 16:13 VIS not applicable for this client. hb Outcome: 16:03 Discharge ordered by . rn 16:13 Discharged to home via wheelchair, with significant other. hb 16:13 Condition: stable 16:13 Discharge instructions given to patient, significant other, Instructed on discharge instructions, follow up and referral plans. medication usage, Demonstrated understanding of instructions, follow-up care, medications. 16:15 Patient left the ED. hb Signatures: Dispatcher [employer] EDJose Elias Aguilera MD MD rn Baxter, Heather, RN RN hb Garcia, Rubi rg4 Corrections: (The following items were deleted from the chart) 14:38 14:36 Chief complaint: Fell over when attempting to lift weights this morning, now c/o hb left knee pain 5/10. hb 14:38 14:36 BP 146 / 56; Pulse 83bpm; Resp 16bpm; Pulse Ox 100%; Temp 97.9F; 117.93 kg; hb Height 6 ft. 1 in.; BMI: 34.3; Pain 5/10, Adult; hb 14:38 14:36 Acuity: SARAH 4 hb hb 14:41 14:36 Acuity: SARAH 3 hb hb
--- NOTE | 2023-02-11 16:04 | EDPHYS ---
Physician Documentation [facility] Name: Davin Rodriguez Age: 82 yrs Sex: Male : 1940 Arrival Date: 02/11/2023 Time: 14:25 Bed IW2 Private MD: ED Physician Jose Elias Longoria HPI: 02/11 14:52 This 82 yrs old Male presents to ER via Wheelchair with complaints of Knee Injury. rn 14:52 The patient presents with an injury, pain, swelling. The complaints affect the left rn quadriceps and left knee. Onset: The symptoms/episode began/occurred 5 hour(s) ago. Modifying factors: The symptoms are alleviated by remaining still, the symptoms are aggravated by movement, bending knee. Associated signs and symptoms: Pertinent positives: swelling, Pertinent negatives fever, weakness. Severity of symptoms: At their worst the symptoms were moderate, in the emergency department the symptoms have improved. The patient has not experienced similar symptoms in the past. Reports cleaning up at [employer], was carrying weight, fell forward, onto ground, hit inside of left thigh/knee, + significant swelling to left thigh and knee, only takes aspirin, mild shoulder injury/pain, no LOC. No other injuries. Reports can stand and walk, hurts most with leg extension. Has had total knee replacement. . Historical: - Allergies: 14:36 Ciprofloxacin; hb 14:36 finasteride; hb 14:36 tamsulosin; hb - PMHx: 14:36 cardiac bypass x5; Hypertension; hb - Immunization history:: Adult Immunizations up to date. - Social history:: Smoking status: Patient denies any tobacco usage or history of. - Family history:: not pertinent. - Hospitalizations: : No recent hospitalization is reported. ROS: 14:52 Constitutional: Negative for fever, chills, and weight loss, Cardiovascular: Negative rn for chest pain, palpitations, and edema, Respiratory: Negative for shortness of breath, cough, wheezing, and pleuritic chest pain, Abdomen/GI: Negative for abdominal pain, nausea, vomiting, diarrhea, and constipation, MS/Extremity: + left shoulder injury and pain, + left knee/thigh swelling and pain Skin: Negative for injury, rash, and discoloration, Neuro: Negative for headache, weakness, numbness, tingling, and seizure. Exam: 14:52 Constitutional: This is a well developed, well nourished patient who is awake, alert, rn and in no acute distress. Head/Face: Normocephalic, atraumatic. Cardiovascular: Regular rate and rhythm. No pulse deficits. MS/ Extremity: Pulses equal, no cyanosis. Neurovascular intact. + painful extension of LLE with moderate swelling/hematoma to left knee and distal left inner thigh, no open wounds. + mild pain with ROM left shoulder. Neuro: Awake and alert, GCS 15, oriented to person, place, time, and situation. Vital Signs: 14:36 BP 148 / 69; Pulse 83; Resp 16; Temp 97.9; Pulse Ox 100% ; Weight 117.93 kg; Height 6 hb ft. 1 in. ; Pain 5/10; 14:36 Body Mass Index 34.30 (117.93 kg, 185.42 cm) hb 14:36 Pain Scale: Adult hb MDM: 14:34 Patient medically screened. rn 16:01 Differential diagnosis: contusion, hematoma, muscle rupture, effusion, fracture. Data rn reviewed: vital signs, nurses notes, radiologic studies, plain films, and as a result, I will discharge patient. Independent interpretation of the following test(s) in the Emergency Department X-Ray: My interpretation is Xray left knee images neg for fracture. Counseling: I had a detailed discussion with the patient and/or guardian regarding: the historical points, exam findings, and any diagnostic results supporting the discharge/admit diagnosis, radiology results, the need for outpatient follow up, to return to the emergency department if symptoms worsen or persist or if there are any questions or concerns that arise at home. Special discussion: I discussed with the patient/guardian in detail that at this point there is no indication for admission to the hospital. It is understood, however, that if the symptoms persist or worsen the patient needs to return immediately for re-evaluation. 02/11 14:44 Order name: XRAY Knee LEFT 3 view; Complete Time: 15:50 rn 02/11 14:44 Order name: XRAY Femur LEFT; Complete Time: 15:50 rn 02/11 14:44 Order name: XRAY Shoulder LEFT 2 view; Complete Time: 15:50 rn 02/11 15:00 Order name: Knee Left Wo Con; Complete Time: 15:50 EDMS Administered Medications: No medications were administered Disposition Summary: 02/11/23 16:03 Discharge Ordered Location: Home rn Problem: new rn Symptoms: have improved rn Condition: Stable rn Diagnosis - Traumatic hematoma of left lower extremity rn - Contusion of left shoulder, initial encounter rn Followup: rn - With: Private Physician - When: As needed - Reason: Recheck today's complaints, Re-evaluation by your physician Discharge Instructions: - Discharge Summary Sheet rn - Hematoma rn Forms: - Medication Reconciliation Form rn - Thank You Letter rn - Antibiotic tile burner - Prescription Opioid Use rn Signatures: Dispatcher [employer] EDJose Elias Aguilera MD MD rn Baxter, Heather, RN RN Corrections: (The following items were deleted from the chart) 14:59 14:49 CT LEFT KNEE WO CONTRAST ordered. EDMD EDMD
[2023-02-11 16:45] VITALS: BP 148/69; TEMP 97.9; O2SAT 100
== END 2023-02-11 16:15 | disposition home or self-care (01) ==
LOC: ER 14:25
DX: S80.12XA Contusion of left lower leg, initial encounter (principal); S40.012A Contusion of left shoulder, initial encounter; Z88.1 Allergy status to other antibiotic agents; Z88.8 Allergy status to other drugs, medicaments and biological substances
CPT/HCPCS: 73700